=== PATIENT | female | born 1970 | race Caucasian/White ===

== ENCOUNTER → 2016-06-21 | Outpatient (CLI) | payer BC | LOC: M LAB 16:05 | PROVIDERS: ATTEND Nurse Practitioner Family | DX: E11.9 Type 2 diabetes mellitus without complications (principal) ==

== ENCOUNTER 2017-02-05 15:40 | Emergency (ER) | payer OTHER, BC ==
[~2017-02-05] VITALS: Ht 170.2 cm; Wt 99.1 kg
[2017-02-05] MEDS ORDERED: METF10004 PO (15:52)
[2017-02-05] MEDS ORDERED: PHEN-239 PO (15:52)
[2017-02-05] MEDS ORDERED: TANZ1INJ SC (15:52)
[2017-02-05 16:25] LABS: BASO % 0.5 % (0.0-1.0); EOS # 0.1 10^3/uL (0.0-0.50); EOS % 1.6 % (0.0-3.0); IMMATURE GRANULOCYTE % 0.4 % (0-0); LYMPH # 2.9 10^3/uL (1.5-4.5); LYMPH % 37.4 % (24.0-44.0); MEAN CORPUSCULAR HEMOGLOBIN 27.4 pg (27.0-33.0); MEAN CORPUSCULAR HGB CONC 32.9 g/dl (32.0-36.5); MEAN CORPUSCULAR VOLUME 83.3 fl (80.0-96.0); MONO # 0.5 10^3/uL (0.0-0.8); MONO % 6.7 % (0.0-5.0); NEUTROPHILS # 4.1 10^3/uL (1.8-7.7); NEUTROPHILS % 53.4 % (36.0-66.0); PLATELET COUNT, AUTOMATED 283 10^3/uL (150-450); RED CELL DISTRIBUTION WIDTH 13.3 % (11.5-14.5); WHITE BLOOD COUNT 7.6 10^3/uL (4.0-10.0)
[2017-02-05] MEDS ORDERED: ADACEL/BOOSTRIX VACCINE (DIPHTH/PERTUSS/ACELL/TETANUS)0.5ML SYR (90715) IM ONE (16:30)
[2017-02-05 16:53] LABS: ALBUMIN 3.8 GM/DL (3.2-5.2); ALBUMIN/GLOBULIN RATIO 1.03 (1.00-1.93); ALKALINE PHOSPHATASE 69 U/L (45-117); ALT/SGPT 43 U/L (12-78); ANION GAP 9 MEQ/L (8-16); AST/SGOT 20 U/L (7-37); BILIRUBIN,TOTAL 0.2 MG/DL (0.2-1.0); BLOOD UREA NITROGEN 12 MG/DL (7-18); CALCIUM LEVEL 9.4 MG/DL (8.5-10.1); CARBON DIOXIDE LEVEL 28 MEQ/L (21-32); CHLORIDE LEVEL 103 MEQ/L (98-107); CREATININE FOR GFR 0.91 MG/DL (0.55-1.02); GLOMERULAR FILTRATION RATE > 60.0 (>58); GLUCOSE, FASTING 140 MG/DL (70-105); POTASSIUM SERUM 3.8 MEQ/L (3.5-5.1); SODIUM LEVEL 140 MEQ/L (136-145); TOTAL PROTEIN 7.5 GM/DL (6.4-8.2)
[2017-02-05 17:07] VITALS: BP 138/76
[2017-02-05 17:55] LABS: HIV SCREEN CENTAUR EXPOSED NEGATIVE (NEGATIVE)
[2017-02-07 11:37] LABS: HEPATITIS B SURFACE ANTIBODY POSITIVE (POSITIVE)
== END 2017-02-05 17:08 | disposition home or self-care (01) ==
LOC: M ED 15:40
DX: S61.231A Puncture wound without foreign body of left index finger without damage to nail, initial encounter (principal); Z77.21 Contact with and (suspected) exposure to potentially hazardous body fluids; W46.1XXA Contact with contaminated hypodermic needle, initial encounter; Y92.238 Other place in hospital as the place of occurrence of the external cause; Y93.89 Activity, other specified; Y99.0 Civilian activity done for income or pay; Z79.84 Long term (current) use of oral hypoglycemic drugs; Z79.899 Other long term (current) drug therapy

== ENCOUNTER → 2017-06-14 | Outpatient (CLI) | payer BC | LOC: M RAD 08:57 | DX: R31.9 Hematuria, unspecified (principal) | CPT/HCPCS: 74176 ==

== ENCOUNTER → 2017-07-31 | Outpatient (CLI) | payer BC | LOC: M RAD 09:36 | DX: M53.3 Sacrococcygeal disorders, not elsewhere classified (principal) ==

== ENCOUNTER → 2017-11-21 | Outpatient (CLI) | payer BC ==
[2017-11-21 11:10] LABS: ESTIMATED AVERAGE GLUCOSE 157 MG/DL (60-110); HEMOGLOBIN A1c 7.1 %
[2017-11-21 11:25] LABS: ALBUMIN 3.8 GM/DL (3.2-5.2); ALKALINE PHOSPHATASE 70 U/L (45-117); ALT/SGPT 38 U/L (12-78); ANION GAP 6 MEQ/L (8-16); AST/SGOT 21 U/L (7-37); BILIRUBIN,TOTAL 0.3 MG/DL (0.2-1.0); BLOOD UREA NITROGEN 12 MG/DL (7-18); CALCIUM LEVEL 9.1 MG/DL (8.5-10.1); CARBON DIOXIDE LEVEL 30 MEQ/L (21-32); CHLORIDE LEVEL 104 MEQ/L (98-107); CHOLESTEROL LEVEL 158 MG/DL (<200); CHOLESTEROL RISK RATIO 2.548 (<5); CREATININE FOR GFR 0.69 MG/DL (0.55-1.30); GLOMERULAR FILTRATION RATE > 60.0 (>58); GLUCOSE, FASTING 130 MG/DL (70-100); HDL CHOLESTEROL 62 MG/DL (>40); LDL CHOLESTEROL 85 MG/DL (<100); NON-HDL-C 96 MG/DL; POTASSIUM SERUM 4.2 MEQ/L (3.5-5.1); SODIUM LEVEL 140 MEQ/L (136-145); TOTAL PROTEIN 7.6 GM/DL (6.4-8.2); TRIGLYCERIDES LEVEL 54 MG/DL (<150)
== END ==
LOC: M LAB 09:22
DX: E11.9 Type 2 diabetes mellitus without complications (principal); Z13.220 Encounter for screening for lipoid disorders; E66.09 Other obesity due to excess calories
CPT/HCPCS: 80053

== ENCOUNTER 2018-02-18 10:52 | Emergency (ER) | payer OTHER, BC ==
[2018-02-18 11:38] LABS: BASO # 0.1 10^3/uL (0.0-0.2); BASO % 0.6 % (0.0-1.0); EOS # 0.3 10^3/uL (0.0-0.50); EOS % 3.2 % (0.0-3.0); HEMATOCRIT 39.7 % (36.0-47.0); IMMATURE GRANULOCYTE % 0.4 % (0-3.0); LYMPH # 2.8 10^3/uL (1.5-4.5); LYMPH % 31.1 % (24.0-44.0); MEAN CORPUSCULAR HEMOGLOBIN 27.3 pg (27.0-33.0); MEAN CORPUSCULAR HGB CONC 32.7 g/dl (32.0-36.5); MEAN CORPUSCULAR VOLUME 83.2 fl (80.0-96.0); MONO # 0.5 10^3/uL (0.0-0.8); MONO % 5.9 % (0.0-5.0); NEUTROPHILS # 5.3 10^3/uL (1.8-7.7); NEUTROPHILS % 58.8 % (36.0-66.0); PLATELET COUNT, AUTOMATED 269 10^3/uL (150-450); RED BLOOD COUNT 4.77 10^6/uL (4.00-5.40); RED CELL DISTRIBUTION WIDTH 13.2 % (11.5-14.5)
[2018-02-18 11:59] LABS: ALBUMIN 3.5 GM/DL (3.2-5.2); ALBUMIN/GLOBULIN RATIO 0.97 (1.00-1.93); ALKALINE PHOSPHATASE 72 U/L (45-117); ALT/SGPT 44 U/L (12-78); ANION GAP 8 MEQ/L (8-16); AST/SGOT 33 U/L (7-37); BILIRUBIN,TOTAL 0.3 MG/DL (0.2-1.0); BLOOD UREA NITROGEN 12 MG/DL (7-18); CALCIUM LEVEL 8.6 MG/DL (8.5-10.1); CARBON DIOXIDE LEVEL 27 MEQ/L (21-32); CHLORIDE LEVEL 104 MEQ/L (98-107); GLOMERULAR FILTRATION RATE > 60.0 (>58); GLUCOSE, FASTING 150 MG/DL (70-100); POTASSIUM SERUM 4.1 MEQ/L (3.5-5.1); SODIUM LEVEL 139 MEQ/L (136-145); TOTAL PROTEIN 7.1 GM/DL (6.4-8.2)
[2018-02-18 12:03] LABS: CONTROL LINE HCG INT CTR LINE PRESENT; HCG, SERUM QUALITATIVE NEGATIVE (NEGATIVE)
[2018-02-18 12:37] LABS: HEPATITIS B SURFACE ANTIBODY POSITIVE (POSITIVE)
[2018-02-18 12:47] LABS: HIV SCREEN CENTAUR EXPOSED NEGATIVE (NEGATIVE)
[2018-02-18 12:48] LABS: HEPATITIS B SURFACE ANTIGEN NEGATIVE (NEGATIVE)
[2018-02-18 13:16] LABS: HEPATITIS C VIRUS ABY INDEX 0.1 INDEX (<0.8)
== END 2018-02-18 11:53 | disposition home or self-care (01) ==
LOC: M ED 10:52
DX: S61.230A Puncture wound without foreign body of right index finger without damage to nail, initial encounter (principal); W26.8XXA Contact with other sharp object(s), not elsewhere classified, initial encounter; Y92.234 Operating room of hospital as the place of occurrence of the external cause; Y99.0 Civilian activity done for income or pay; Z77.21 Contact with and (suspected) exposure to potentially hazardous body fluids; E11.9 Type 2 diabetes mellitus without complications; Z79.84 Long term (current) use of oral hypoglycemic drugs; Z91.040 Latex allergy status
CPT/HCPCS: 80053

== ENCOUNTER 2018-07-03 08:56 | Emergency (ER) | payer OTHER, BC ==
[~2018-07-03] VITALS: Ht 170.2 cm; Wt 103.1 kg
[2018-07-03 08:56] VITALS: BP 134/76
[~2018-07-03 08:56] MED LIST: METF10004 PO; PHEN-239 PO; TANZ1INJ SC
[2018-07-03] MEDS ORDERED: TRUL10IN (09:02)
[2018-07-03 09:38] LABS: BASO % 0.4 % (0.0-1.0); EOS # 0.2 10^3/uL (0.0-0.50); EOS % 2.7 % (0.0-3.0); HEMATOCRIT 40.1 % (36.0-47.0); HEMOGLOBIN 13.1 g/dl (12.0-15.5); LYMPH # 2.4 10^3/uL (1.5-4.5); LYMPH % 35.1 % (24.0-44.0); MEAN CORPUSCULAR HEMOGLOBIN 26.6 pg (27.0-33.0); MEAN CORPUSCULAR HGB CONC 32.7 g/dl (32.0-36.5); MEAN CORPUSCULAR VOLUME 81.3 fl (80.0-96.0); MONO # 0.3 10^3/uL (0.0-0.8); MONO % 4.9 % (0.0-5.0); NEUTROPHILS # 3.8 10^3/uL (1.8-7.7); NEUTROPHILS % 56.6 % (36.0-66.0); PLATELET COUNT, AUTOMATED 248 10^3/uL (150-450); RED BLOOD COUNT 4.93 10^6/uL (4.00-5.40); WHITE BLOOD COUNT 6.8 10^3/uL (4.0-10.0)
[2018-07-03 10:02] LABS: ALBUMIN 3.9 GM/DL (3.2-5.2); ALT/SGPT 68 U/L (12-78); BILIRUBIN,TOTAL 0.3 MG/DL (0.2-1.0); BLOOD UREA NITROGEN 13 MG/DL (7-18); CALCIUM LEVEL 9.2 MG/DL (8.5-10.1); CARBON DIOXIDE LEVEL 27 MEQ/L (21-32); CHLORIDE LEVEL 105 MEQ/L (98-107); CREATININE FOR GFR 0.76 MG/DL (0.55-1.30); GLOMERULAR FILTRATION RATE > 60.0 (>58); GLUCOSE, FASTING 246 MG/DL (70-100); POTASSIUM SERUM 4.1 MEQ/L (3.5-5.1); SODIUM LEVEL 138 MEQ/L (136-145); TOTAL PROTEIN 7.6 GM/DL (6.4-8.2)
[2018-07-03 10:14] LABS: HEPATITIS B SURFACE ANTIBODY POSITIVE (POSITIVE)
[2018-07-03 10:25] LABS: HEPATITIS B SURFACE ANTIGEN NEGATIVE (NEGATIVE)
== END 2018-07-03 09:46 | disposition home or self-care (01) ==
LOC: M ED 08:56
DX: S61.431A Puncture wound without foreign body of right hand, initial encounter (principal); W46.1XXA Contact with contaminated hypodermic needle, initial encounter; Y92.234 Operating room of hospital as the place of occurrence of the external cause; Y93.89 Activity, other specified; Y99.0 Civilian activity done for income or pay; Z77.21 Contact with and (suspected) exposure to potentially hazardous body fluids; Z79.84 Long term (current) use of oral hypoglycemic drugs; Z79.899 Other long term (current) drug therapy; Z91.040 Latex allergy status

== ENCOUNTER → 2019-02-10 | Outpatient (CLI) | payer BC ==
[~2019-02-10] MED LIST changes: +TRUL10IN
[2019-02-10 07:16] LABS: BASO % 0.4 % (0.0-1.0); EOS # 0.3 10^3/uL (0.0-0.5); EOS % 4.2 % (0.0-3.0); HEMATOCRIT 41.9 % (36.0-47.0); HEMOGLOBIN 13.6 g/dl (12.0-15.5); LYMPH # 2.8 10^3/uL (1.5-5.0); LYMPH % 38.3 % (24.0-44.0); MEAN CORPUSCULAR HEMOGLOBIN 27.1 pg (27.0-33.0); MEAN CORPUSCULAR HGB CONC 32.5 g/dl (32.0-36.5); MEAN CORPUSCULAR VOLUME 83.5 fl (80.0-96.0); MONO # 0.5 10^3/uL (0.0-0.8); MONO % 6.5 % (0.0-5.0); NEUTROPHILS # 3.6 10^3/uL (1.5-8.5); NEUTROPHILS % 50.3 % (36.0-66.0); PLATELET COUNT, AUTOMATED 230 10^3/uL (150-450); RED BLOOD COUNT 5.02 10^6/uL (4.00-5.40); WHITE BLOOD COUNT 7.2 10^3/uL (4.0-10.0)
[2019-02-10 07:44] LABS: ALBUMIN 3.6 GM/DL (3.2-5.2); ALT/SGPT 80 U/L (12-78); BILIRUBIN,TOTAL 0.5 MG/DL (0.2-1.0); BLOOD UREA NITROGEN 9 MG/DL (7-18); CALCIUM LEVEL 8.8 MG/DL (8.5-10.1); CARBON DIOXIDE LEVEL 27 MEQ/L (21-32); CHLORIDE LEVEL 104 MEQ/L (98-107); CREATININE FOR GFR 0.66 MG/DL (0.55-1.30); GLOMERULAR FILTRATION RATE > 60.0 (>51); GLUCOSE, FASTING 308 MG/DL (70-100); SODIUM LEVEL 139 MEQ/L (136-145); TOTAL PROTEIN 7.2 GM/DL (6.4-8.2)
== END ==
LOC: M LAB 06:30
PROVIDERS: ATTEND Surgery
DX: Z01.818 Encounter for other preprocedural examination (principal); E11.9 Type 2 diabetes mellitus without complications

== ENCOUNTER → 2019-02-13 | Outpatient (REF) | payer BC | LOC: M SFHCLERA 15:40 | PROVIDERS: ATTEND Family Medicine | DX: E11.9 Type 2 diabetes mellitus without complications (principal); Z53.9 Procedure and treatment not carried out, unspecified reason ==

== ENCOUNTER → 2019-02-14 | Outpatient (CLI) | payer BC ==
[2019-02-14 07:33] LABS: HEMOGLOBIN A1c 10.3 %
[2019-02-14 07:45] LABS: CHOLESTEROL RISK RATIO 3.479 (<5); THYROID STIMULATING HORMONE 2.73 uIU/ML (0.358-3.740)
[2019-02-14 11:32] LABS: MALB URINE SIEMENS 58.9 MG/L; MAU/CREAT RATIO 12.5 MCG/MG (0.0-30.0)
== END ==
LOC: M LAB 06:14
PROVIDERS: ATTEND Family Medicine
DX: E11.9 Type 2 diabetes mellitus without complications (principal)

== ENCOUNTER → 2019-04-04 | Outpatient (CLI) | payer BC ==
[2019-04-04 13:57] LABS: HEMATOCRIT 48.6 % (36.0-47.0)
[2019-04-04 14:02] LABS: BASO % 0.5 % (0.0-1.0); EOS # 0.2 10^3/uL (0.0-0.5); EOS % 4.1 % (0.0-3.0); HEMATOCRIT 48.4 % (36.0-47.0); HEMOGLOBIN 15.6 g/dl (12.0-15.5); LYMPH # 1.9 10^3/uL (1.5-5.0); MEAN CORPUSCULAR HGB CONC 32.2 g/dl (32.0-36.5); MEAN CORPUSCULAR VOLUME 83.7 fl (80.0-96.0); MONO # 0.5 10^3/uL (0.0-0.8); NEUTROPHILS # 3.1 10^3/uL (1.5-8.5); NEUTROPHILS % 54.2 % (36.0-66.0); PLATELET COUNT, AUTOMATED 184 10^3/uL (150-450); RED BLOOD COUNT 5.78 10^6/uL (4.00-5.40); WHITE BLOOD COUNT 5.6 10^3/uL (4.0-10.0)
[2019-04-04 14:33] LABS: ALT/SGPT 47 U/L (12-78); BILIRUBIN,TOTAL 0.8 MG/DL (0.2-1.0); BLOOD UREA NITROGEN 6 MG/DL (7-18); CALCIUM LEVEL 9.3 MG/DL (8.5-10.1); CARBON DIOXIDE LEVEL 30 MEQ/L (21-32); CHLORIDE LEVEL 100 MEQ/L (98-107); CREATININE FOR GFR 0.83 MG/DL (0.55-1.30); FERRITIN 265 NG/ML (8-252); GLOMERULAR FILTRATION RATE > 60.0 (>51); GLUCOSE, FASTING 160 MG/DL (70-100); HEMOGLOBIN A1c 8.8 %; IRON (FE) 76 UG/DL (50-170); PERCENT SATURATION 23.2 % (13.2-45.0); PHOSPHORUS LEVEL 3.1 MG/DL (2.5-4.9); POTASSIUM SERUM 3.5 MEQ/L (3.5-5.1); SODIUM LEVEL 141 MEQ/L (136-145); TOTAL IRON BINDING CAPACITY 328 UG/DL (250-450); TOTAL PROTEIN 7.6 GM/DL (6.4-8.2)
[2019-04-04 14:41] LABS: TOTAL 25(OH) VITAMIN D 35.8 NG/ML (30.0-100.0); VITAMIN B12 LEVEL > 2000 PG/ML (247-911)
== END ==
LOC: M LAB 13:09
PROVIDERS: ATTEND Surgery
DX: K91.2 Postsurgical malabsorption, not elsewhere classified (principal); E55.9 Vitamin D deficiency, unspecified; Z98.84 Bariatric surgery status

== ENCOUNTER → 2019-09-18 | Outpatient (CLI) | payer BC ==
[2019-09-18 06:49] LABS: BASO % 0.4 % (0.0-1.0); EOS # 0.2 10^3/uL (0.0-0.5); EOS % 2.3 % (0.0-3.0); HEMATOCRIT 41.2 % (36.0-47.0); HEMOGLOBIN 13.6 g/dl (12.0-15.5); LYMPH # 2.8 10^3/uL (1.5-5.0); LYMPH % 38.5 % (24.0-44.0); MEAN CORPUSCULAR HEMOGLOBIN 28.9 pg (27.0-33.0); MEAN CORPUSCULAR VOLUME 87.5 fl (80.0-96.0); MONO # 0.4 10^3/uL (0.0-0.8); MONO % 5.8 % (0.0-5.0); NEUTROPHILS # 3.8 10^3/uL (1.5-8.5); NEUTROPHILS % 52.7 % (36.0-66.0); PLATELET COUNT, AUTOMATED 222 10^3/uL (150-450); RED BLOOD COUNT 4.71 10^6/uL (4.00-5.40); WHITE BLOOD COUNT 7.3 10^3/uL (4.0-10.0)
[2019-09-18 07:08] LABS: HEMOGLOBIN A1c 6.4 %
[2019-09-18 07:18] LABS: ALBUMIN 3.7 GM/DL (3.2-5.2); ALT/SGPT 32 U/L (12-78); BILIRUBIN,TOTAL 0.4 MG/DL (0.2-1.0); BLOOD UREA NITROGEN 12 MG/DL (7-18); CALCIUM LEVEL 9.3 MG/DL (8.5-10.1); CARBON DIOXIDE LEVEL 31 MEQ/L (21-32); CHLORIDE LEVEL 104 MEQ/L (98-107); CREATININE FOR GFR 0.68 MG/DL (0.55-1.30); FERRITIN 127 NG/ML (8-252); GLOMERULAR FILTRATION RATE > 60.0 (>51); GLUCOSE, FASTING 103 MG/DL (70-100); IRON (FE) 71 UG/DL (50-170); MAGNESIUM LEVEL 2.1 MG/DL (1.8-2.4); PERCENT SATURATION 21.3 % (13.2-45.0); PHOSPHORUS LEVEL 4.4 MG/DL (2.5-4.9); POTASSIUM SERUM 3.9 MEQ/L (3.5-5.1); SODIUM LEVEL 140 MEQ/L (136-145); TOTAL IRON BINDING CAPACITY 333 UG/DL (250-450); TOTAL PROTEIN 7.1 GM/DL (6.4-8.2)
[2019-09-18 10:18] LABS: TOTAL 25(OH) VITAMIN D 58.5 NG/ML (30.0-100.0); VITAMIN B12 LEVEL 1901 PG/ML (247-911)
[2019-09-19 10:50] LABS: HEMATOCRIT 41.2 % (36.0-47.0)
== END ==
LOC: M LAB 06:15
PROVIDERS: ATTEND Physician Assistant
DX: K91.2 Postsurgical malabsorption, not elsewhere classified (principal); E55.9 Vitamin D deficiency, unspecified; Z98.84 Bariatric surgery status; Z86.39 Personal history of other endocrine, nutritional and metabolic disease

== ENCOUNTER → 2020-01-15 | Outpatient (CLI) | payer BC | LOC: M WHC 07:55 | PROVIDERS: ATTEND Family Medicine | DX: Z12.31 Encounter for screening mammogram for malignant neoplasm of breast (principal) ==

== ENCOUNTER → 2020-03-22 | Outpatient (REF) | payer SELFPAY | LOC: M LABSMTC 13:40 → EDSTATUS 13:50 | PROVIDERS: ATTEND Pediatrics | DX: Z20.822 Contact with and (suspected) exposure to COVID-19 (principal) ==

== ENCOUNTER → 2020-04-02 | Outpatient (CLI) | payer BC ==
[2020-04-02 07:08] LABS: BASO % 0.8 % (0.0-1.0); EOS # 0.2 10^3/uL (0.0-0.5); EOS % 3.4 % (0.0-3.0); HEMATOCRIT 40.3 % (36.0-47.0); HEMOGLOBIN 13.6 g/dl (12.0-15.5); LYMPH # 2.7 10^3/uL (1.5-5.0); LYMPH % 53.2 % (24.0-44.0); MEAN CORPUSCULAR HGB CONC 33.7 g/dl (32.0-36.5); MEAN CORPUSCULAR VOLUME 85.9 fl (80.0-96.0); MONO # 0.3 10^3/uL (0.0-0.8); MONO % 6.6 % (0.0-5.0); NEUTROPHILS # 1.8 10^3/uL (1.5-8.5); PLATELET COUNT, AUTOMATED 209 10^3/uL (150-450); RED BLOOD COUNT 4.69 10^6/uL (4.00-5.40)
[2020-04-02 07:14] LABS: HEMATOCRIT 40.3 % (36.0-47.0)
[2020-04-02 07:45] LABS: ALBUMIN 3.7 GM/DL (3.2-5.2); ALT/SGPT 39 U/L (12-78); BILIRUBIN,TOTAL 0.5 MG/DL (0.2-1.0); BLOOD UREA NITROGEN 16 MG/DL (7-18); CALCIUM LEVEL 8.9 MG/DL (8.5-10.1); CARBON DIOXIDE LEVEL 33 MEQ/L (21-32); CHLORIDE LEVEL 105 MEQ/L (98-107); CREATININE FOR GFR 0.59 MG/DL (0.55-1.30); FERRITIN 113 NG/ML (8-252); GLOMERULAR FILTRATION RATE > 60.0 (>51); GLUCOSE, FASTING 97 MG/DL (70-100); IRON (FE) 75 UG/DL (50-170); PHOSPHORUS LEVEL 4.1 MG/DL (2.5-4.9); POTASSIUM SERUM 3.8 MEQ/L (3.5-5.1); SODIUM LEVEL 141 MEQ/L (136-145); TOTAL IRON BINDING CAPACITY 341 UG/DL (250-450); TOTAL PROTEIN 6.8 GM/DL (6.4-8.2)
[2020-04-02 09:33] LABS: TOTAL 25(OH) VITAMIN D 41.8 NG/ML (30.0-100.0)
[2020-04-02 09:34] LABS: FOLATE 20.2 NG/ML (>5.4); VITAMIN B12 LEVEL 1608 PG/ML (247-911)
[2020-04-02 09:51] LABS: HEMOGLOBIN A1c 5.8 %
== END ==
LOC: M LAB 06:10
PROVIDERS: ATTEND Physician Assistant
DX: K91.2 Postsurgical malabsorption, not elsewhere classified (principal); Z98.84 Bariatric surgery status; E55.9 Vitamin D deficiency, unspecified; Z86.39 Personal history of other endocrine, nutritional and metabolic disease

== ENCOUNTER 2021-01-23 15:25 | Emergency (ER) | payer BC, SELFPAY ==
[~2021-01-23] VITALS: Ht 167.6 cm; Wt 71.3 kg
[2021-01-23] MEDS ORDERED: OMEP10CASR PO (15:32)
--- OUTSIDE RECORDS SUMMARY | 2021-01-23 15:33 | CCD ---
Author Author [facility] Organization [facility] Address Unknown Phone Unavailable Care Team Providers Care Inspector Glass Or Mirror Name Role Phone Tiarra Gardiner Unavailable PROBLEMS Type Condition ICD9-CM Code [id number] Code Onset Dates Condition S tatus W/U Status Risk SNOMED Code Notes Problem Type 2 diabetes mellitus without complications E11 .9 Active confirmed 159799411 Problem Obesity (BMI 35.0-39.9 without comorbidity) E66.9 Active confirmed 361348366 Problem Gastric bypass status for obesity Z98.84 Active confirmed 460684936 Problem Vaginal atrophy N95.2 Active confirmed 2971 84869 Problem Fatty liver disease, nonalcoholic K76.0 Active confirmed 562030038 Problem Vitamin D deficiency E55.9 Active confirmed 44179372 Problem Family history of cancer Z80.9 Active confirmed 090720972 Problem Washburn's esophagus without dysplasia K22.70 Ac tive confirmed 757616519 ALLERGIES Allergen (clinical drug ingredient) Drug/Non Drug Allergy do cumented on EMR Reaction Allergy Type Onset Date Status Latex (for allergy use only) Hives, itching Drug Allergy Active ENCOUNTERS from 1968 to 2020-12-21 Encounter Location Date Provider Diagnosis [facility] [address] [facility] [phone] [place] [address] 11 Dec, 2020 Tiarra Gardiner Washburn's esophagus without dysplasia K22.70 IMMUNIZATIONS Vaccine Route Administration Date Status Influenza 18 yrs & older Flublok Unknown Feb 03, 2019 Administered SOCIAL HISTORY Tobacco Use: Social History Observation Description Date Details (start date - stop date) Never Smoker Sex Assigned At : Social History Observation Description Sex Assigned At Unknown Education: Question Answer Notes Level of Education: Some college Audit Question Answer Notes Total Score: 1 Interpretation: Alcohol Education Language: Question Answer Notes Languages spoken: Korean Orthodoxy: Question Answer Notes Orthodoxy 03 Cheondoism Sexual Hx: Question Answer Notes Had sex in the last 12 months (vaginal, oral, or anal)? Yes Have you ever had an STD? No with Men only Use protection? No Drug and Alcohol Question Answer Notes Total Score: 0 Interpretation: No problems reported Alcohol Screening: Question Answer Notes Did you have a drink containing alcohol in the past year? No Points 0 Interpretation Negative Tobacco Use: Question Answer Notes Are you a: never smoker REASON FOR REFERRAL No Information VITAL SIGNS No information MEDICATIONS Medication SIG (Take, Route, Frequency, Duration) Notes Start Da te End Date Status Vitamin B Complex - as directed Orally Daily 1500 MG Active metFORMIN HCl ER 500 MG 1 tablet with evening meal Orally Once a day Apr, Not-Taking Ferrous Sulfate 325 (65 Fe) MG 1 tablet Orally Once a day somedays Not-Taking Multivitamin Adult _ 2 tablets Orally Once a day Active FreeStyle Michael 14 Day Sensor - USE DIRECTED for 28 Not-Taking Diflucan 150 MG 1 tablet Orally Daily for 2 days Can rep eat dose at 48 hours if no improvement Dec, Active Calcium Citrate + D _ 2 tablets Orally Twice a day 200 MG Active Omeprazole 20 MG 1 capsule 30 minutes before morning meal Orally Daily for 90 day(s) Active Premarin 0.625 MG/GM 0.5gm daily for 2 weeks, the n twice a week Vaginal for 90 day(s) Jan, Active PROCEDURES No Information RESULTS No Results REASON FOR VISIT REFILL MEDICAL (GENERAL) HISTORY Type Description Date Medical History Type 2 diabetes,stopped meds after by Medical History History of hematuria, attrib uted to renal stones and infections in the past. Medical History Obesity Medical History Fatty liver disease Medical History Barrets esophagus Surgical History Tonsillectomy and Adenoidectomy 1987 Surgical History Laparoscopy multiple Surgical History Cystoscopy 1987 Surgical History Total Hysterectomy, after an abnormal pap and s/p pap, endometriosis, did have pap after that which was normal 05/28/2002 Surgical History Cholecystectomy 2009 Surgical History Colonoscopy 2009 Surgical History EGD 01/2019 Surgical History Gastric Bypass 03/06/19 Hospitalization History surgery related Hospitalization History childbirth - NVD 1990 & 1993 Goals Section No Information Health Concerns No Information MEDICAL EQUIPMENT No Information MENTAL STATUS No Information FUNCTIONAL STATUS No Information ASSESSMENTS Encounter Date Diagnosis Assessment Notes Treatment Notes Treatm ent Clinical Notes Dec, Washburn's esophagus without dysplasia (ICD-10 - K22.70) PLAN OF TREATMENT Medication Medication Name Sig Start Date Stop Date Omeprazole 20 MG 1 capsule 30 minutes before morning meal Orally Daily for 90 day(s) Diflucan 150 MG 1 tablet Orally Daily for 2 days Dec, Insurance Providers Payer Name Payer Address Payer Phone Insured Name Patient Relati onship to Insured Coverage Start Date Coverage End Date BCBS [facility] [phone] [facility] [id number] [place]
--- OUTSIDE RECORDS SUMMARY | 2021-01-23 15:33 | CCD ---
Author Author [facility] Organization [facility] Address Unknown Phone Unavailable Care Team Providers Care Resource Paraprofessional Name Role Phone Tiarra Gardiner Unavailable PROBLEMS Type Condition ICD9-CM Code VDH80-[id number] Code Onset Dates Condition S tatus W/U Status Risk SNOMED Code Notes Problem Type 2 diabetes mellitus without complications E11 .9 Active confirmed 496684256 Problem Obesity (BMI 35.0-39.9 without comorbidity) E66.9 Active confirmed 831019111 Problem Gastric bypass status for obesity Z98.84 Active confirmed 548924288 Problem Vaginal atrophy N95.2 Active confirmed 2971 83317 Problem Fatty liver disease, nonalcoholic K76.0 Active confirmed 558503786 Problem Vitamin D deficiency E55.9 Active confirmed 77530394 Problem Family history of cancer Z80.9 Active confirmed 693515900 Problem Washburn's esophagus without dysplasia K22.70 Ac tive confirmed 646037078 ALLERGIES Allergen (clinical drug ingredient) Drug/Non Drug Allergy do cumented on EMR Reaction Allergy Type Onset Date Status Latex (for allergy use only) Hives, itching Drug Allergy Active ENCOUNTERS from 1970 to 2020-12-14 Encounter Location Date Provider Diagnosis [facility] [address] [facility] [phone] [place] [address] Dec, Tiarradagmar Gardiner Washburn's esophagus without dysplasia K22.70 IMMUNIZATIONS [...] Education Language: Question Answer Notes Languages spoken: Divehi Restorationism: Question Answer Notes Restorationism 03 Mormon Sexual Hx: Question Answer Notes Had sex [...] as directed Orally Daily 1500 MG Active Omeprazole 20 MG 1 capsule 30 minutes before morning meal Orally Daily for 90 day(s) Active Premarin 0.625 MG/GM 0.5gm daily for 2 weeks, the n twice a week Vaginal for 90 day(s) Jan, Active metFORMIN HCl ER 500 MG 1 tablet with evening meal Orally Once a day Apr, Not-Taking Multivitamin Adult _ 2 tablets Orally Once a day Active Calcium Citrate + D _ 2 tablets Orally Twice a day 200 MG Active Ferrous Sulfate 325 (65 Fe) MG 1 tablet Orally Once a day somedays Not-Taking FreeStyle Michael 14 Day Sensor - USE DIRECTED for 28 Not-Taking PROCEDURES No Information RESULTS No Results REASON FOR VISIT Refill MEDICAL (GENERAL) HISTORY Type Description Date Medical History Type 2 diabetes,stopped meds after bypas s Medical History History of hematuria, attrib uted [...] which was normal 05/28/2002 Surgical History Cholecystectomy 2008 Surgical History Colonoscopy 2009 Surgical History EGD [...] morning meal Orally Daily for 90 day(s) Insurance Providers Payer Name Payer Address Payer Phone Insured Name Patient Relati onship to Insured Coverage Start Date Coverage End Date [facility] [phone] [facility] [id number] [place]
--- OUTSIDE RECORDS SUMMARY | 2021-01-23 15:33 | CCD ---
Author Author [facility] Organization [facility] Address Unknown Phone Unavailable Care Team Providers Care Spindle Sander Name Role Phone Jarad Pastor Unavailable PROBLEMS Type Condition ICD9-CM Code [id number] Code Onset Dates Condition S tatus W/U Status Risk SNOMED Code Notes Problem Type 2 diabetes mellitus without complications E11 .9 Active confirmed 004931271 Problem Obesity (BMI 35.0-39.9 without comorbidity) E66.9 Active confirmed 834283876 Problem Gastric bypass status for obesity Z98.84 Active confirmed 351285493 Problem Vaginal atrophy N95.2 Active confirmed 2971 43486 Problem Fatty liver disease, nonalcoholic K76.0 Active confirmed 872904514 Problem Vitamin D deficiency E55.9 Active confirmed 51432424 Problem Family history of cancer Z80.9 Active confirmed 036874002 Problem Washburn's esophagus without dysplasia K22.70 Ac tive confirmed 380269713 ALLERGIES Allergen (clinical drug ingredient) Drug/Non Drug Allergy do cumented on EMR Reaction Allergy Type Onset Date Status Latex (for allergy use only) Hives, itching Drug Allergy Active ENCOUNTERS from 1968 to 2020-12-20 Encounter Location Date Provider Diagnosis [address] [phone] [place] [address] 11 Dec, 2020 Jarad Pastor IMMUNIZATIONS Vaccine Route Administration Date Status Influenza [...] Education Language: Question Answer Notes Languages spoken: American Judaism: Question Answer Notes Judaism 03 Jain Sexual Hx: Question Answer Notes Had sex [...] Information RESULTS No Results REASON FOR VISIT request Diflucan for yeast infection MEDICAL (GENERAL) HISTORY Type Description Date Medical History Type 2 diabetes,stopped meds after bypa s Medical History History of hematuria, attrib [...] No Information FUNCTIONAL STATUS No Information ASSESSMENTS No Information PLAN OF TREATMENT Medication Medication Name Sig Start Date Stop Date Omeprazole 20 MG 1 capsule 30 minutes before morning meal Orally Daily for 90 day(s) Diflucan 150 MG 1 tablet Orally Daily for 2 days Dec, Insurance Providers Payer Name Payer Address Payer Phone Insured Name Patient Relati onship to Insured Coverage Start Date [facility]age End Date [facility] [phone] [facility] [id number] [place]
--- OUTSIDE RECORDS SUMMARY | 2021-01-23 15:34 | CCD ---
Author Author [facility] Organization [facility] Address Unknown Phone Unavailable Care Team Providers Care Carroting Machine Offbearer Name Role Phone PATRICIA (KAILEY), Emily DE LA TORRE MD Unavailable Unavailab le PATRICIA (KAILEY), Emily DE LA TORRE MD Unavailable Unavailab le PATRICIA (KAILEY), Emily DE LA TORRE MD Unavailable Unavailab le PATRICIA (KAILEY), Emily DE LA TORRE MD Unavailable Unavailab le PATRICIA (KAILEY), Emily DE LA TORRE MD Unavailable Unavailab le PATRICIA (KAILEY), Emily DE LA TORRE MD Unavailable Unavailab le PATRICIA (KAILEY), Emily DE LA TORRE MD Unavailable Unavailab le PATRICIA (KAILEY), Emily DE LA TORRE MD Unavailable Unavailab le PATRICIA (KAILEY), Emily DE LA TORRE MD Unavailable Unavailab le PATRICIA (KAILEY), Emily DE LA TORRE MD Unavailable Unavailab le PATRICIA (KAILEY), Emily DE LA TORRE MD Unavailable Unavailab le PATRICIA (KAILEY), Emily DE LA TORRE MD Unavailable Unavailab le PATRICIA (KAILEY), Emily DE LA TORRE MD Unavailable Unavailab le PATRICIA (KAILEY), Emily DE LA TORRE MD Unavailable Unavailab le PATRICIA (KAILEY), Emily DE LA TORRE MD Unavailable Unavailab le PATRICIA (KAILEY), Emily DE LA TORRE MD Unavailable Unavailab le PATRICIA (KAILEY), Emily DE LA TORRE MD Unavailable Unavailab le PATRICIA (KAILEY), Emily DE LA TORRE MD Unavailable Unavailab le PATRICIA (KAILEY), Emily DE LA TORRE MD Unavailable Unavailab le PATRICIA (KAILEY), Emily DE LA TORRE MD Unavailable Unavailab le PATRICIA (KAILEY), Emily DE LA TORRE MD Unavailable Unavailab le PATRICIA (KAILEY), Emily DE LA TORRE MD Unavailable Unavailab le PATRICIA (KAILEY), Emily DE LA TORRE MD Unavailable Unavailab le PATRICIA (KAILEY), Emily DE LA TORRE MD Unavailable Unavailab le PATRICIA (KAILEY), Emily DE LA TORRE MD Unavailable Unavailab le PATRICIA (KAILEY), Emily DE LA TORRE MD Unavailable Unavailab le PATRICIA (KAILEY), Emily DE LA TORRE MD Unavailable Unavailab le PATRICIA (KAILEY), Emily DE LA TORRE MD Unavailable Unavailab le PATRICIA (KAILEY), Emily DE LA TORRE MD Unavailable Unavailab le PATRICIA (KAILEY), Emily DE LA TORRE MD Unavailable Unavailab le PATRICIA (KAILEY), Emily DE LA TORRE MD Unavailable Unavailab le PATRICIA (KAILEY), Emily DE LA TORRE MD Unavailable Unavailab le PATRICIA (KAILEY), Emily DE LA TORRE MD Unavailable Unavailab le PATRICIA (KAILEY), Emily DE LA TORRE MD Unavailable Unavailab le PATRICIA (KAILEY), Emily DE LA TORRE MD Unavailable Unavailab le PATRICIA (KAILEY), Emily DE LA TORRE MD Unavailable Unavailab le PATRICIA (KAILEY), Emily DE LA TORRE MD Unavailable Unavailab le PATRICIA (KAILEY), Emily DE LA TORRE MD Unavailable Unavailab le PATRICIA (KAILEY), Emily DE LA TORRE MD Unavailable Unavailab le PATRICIA (KAILEY), Emily DE LA TORRE MD Unavailable Unavailab le PATRICIA (KAILEY), Emily DE LA TORRE MD Unavailable Unavailab le PATRICIA (KAILEY), Emily DE LA TORRE MD Unavailable Unavailab le PATRICIA (KAILEY), Emily DE LA TORRE MD Unavailable Unavailab le PATRICIA (KAILEY), Emily DE LA TORRE MD Unavailable Unavailab le PATRICIA (KAILEY), Emily DE LA TORRE MD Unavailable Unavailab le PATRICIA (KAILEY), Emily DE LA TORRE MD Unavailable Unavailab le PATRICIA (KAILEY), Emily DE LA TORRE MD Unavailable Unavailab le PATRICIA (KAILEY), Emily DE LA TORRE MD Unavailable Unavailab le PATRICIA (KAILEY), Emily DE LA TORRE MD Unavailable Unavailab le PATRICIA (KAILEY), Emily DE LA TORRE MD Unavailable Unavailab le PATRICIA (KAILEY), Emily DE LA TORRE MD Unavailable Unavailab le PATRICIA (KAILEY), Emily DE LA TORRE MD Unavailable Unavailab le PATRICIA (KAILEY), Emily DE LA TORRE MD Unavailable Unavailab le PATRICIA (KIALEY), Emily DE LA TORRE MD Unavailable Unavailab le PATRICIA (KAILEY), Emily DE LA TORRE MD Unavailable Unavailab le PATRICIA (KAILEY), Emily DE LA TORRE MD Unavailable Unavailab le PATRICIA (KAILEY), Emily DE LA TORRE MD Unavailable Unavailab le PATRICIA (KAILEY), Emily DE LA TORRE MD Unavailable Unavailab le PATRICIA (KAILEY), Emily DE LA TORRE MD Unavailable Unavailab le PATRICIA (KAILEY), Emily DE LA TORRE MD Unavailable Unavailab le PATRICIA (KAILEY), Emily DE LA TORRE MD Unavailable Unavailab le PATRICIA (KAILEY), Emily DE LA TORRE MD Unavailable Unavailab le PATRICIA (KAILEY), Emily DE LA TORRE MD Unavailable Unavailab le PATRICIA (KAILEY), Emily DE LA TORRE MD Unavailable Unavailab le PATRICIA (KAILEY), Emily DE LA TORRE MD Unavailable Unavailab le PATRICIA (KAILEY), Emily DE LA TORRE MD Unavailable Unavailab le PATRICIA (KAILEY), Emily DE LA TORRE MD Unavailable Unavailab le PATRICIA (KAILEY), Emily DE LA TORRE MD Unavailable Unavailab le PATRICIA (KAILEY), Emily DE LA TORRE MD Unavailable Unavailab le PATRICIA (KAILEY), Emily DE LA TORRE MD Unavailable Unavailab le PATRICIA (KAILEY), Emily DE LA TORRE MD Unavailable Unavailab le PATRICIA (KAILEY), Emily DE LA TORRE MD Unavailable Unavailab le PATRICIA (KAILEY), Emily DE LA TORRE MD Unavailable Unavailab le PATRICIA (KAILEY), Emily DE LA TORRE MD Unavailable Unavailab le PATRICIA (KAILEY), Emily DE LA TORRE MD Unavailable Unavailab le PATRICIA (KAILEY), Emily DE LA TORRE MD Unavailable Unavailab le PATRICIA (KAILEY), Emily DE LA TORRE MD Unavailable Unavailab le PATRICIA (KAILEY), Emily DE LA TORRE MD Unavailable Unavailab le PATRICIA (KAILEY), Emily DE LA TORRE MD Unavailable Unavailab le PATRICIA (KAILEY), Emily DE LA TORRE MD Unavailable Unavailab le PATRICIA (KAILEY), Emily DE LA TORRE MD Unavailable Unavailab le PATRICIA (KAILEY), Emily DE LA TORRE MD Unavailable Unavailab le PATRICIA (KAILEY), Emily DE LA TORRE MD Unavailable Unavailab le PATRICIA (KAILEY), Emily DE LA TORRE MD Unavailable Unavailab le PATRICIA (KAILEY), Emily DE LA TORRE MD Unavailable Unavailab le PATRICIA (KAILEY), Emily DE LA TORRE MD Unavailable Unavailab le PATRICIA (KAILEY), Emily DE LA TORRE MD Unavailable Unavailab le RING, K KENJI PA Unavailable Unavailable RING, K KENJI PA Unavailable Unavailable RING, K KENJI PA Unavailable Unavailable RING, K KENJI PA Unavailable Unavailable RING, K KENJI PA Unavailable Unavailable RING, K KENJI PA Unavailable Unavailable RING, K KENJI PA Unavailable Unavailable RING, K KENJI PA Unavailable Unavailable RING, K KENJI PA Unavailable Unavailable RING, K KENJI PA Unavailable Unavailable RING, K KENJI PA Unavailable Unavailable RING, K KENJI PA Unavailable Unavailable RING, K KENJI PA Unavailable Unavailable RING, K KENJI PA Unavailable Unavailable RING, K KENJI PA Unavailable Unavailable RING, K KENJI PA Unavailable Unavailable RING, K KENJI PA Unavailable Unavailable RING, K KENJI PA Unavailable Unavailable RING, K KENJI PA Unavailable Unavailable RING, K KENJI PA Unavailable Unavailable RING, K KENJI PA Unavailable Unavailable Sayra, A Vernon GASTELUM Unavailable Unavailable Sayra, A Vernon GASTELUM Unavailable Unavailable Sayra, A Vernon GASTELUM Unavailable Unavailable Sayra, A Vernon GASTELUM Unavailable Unavailable Sayra, A Vernon GASTELUM Unavailable Unavailable Sayra, A Vernon GASTELUM Unavailable Unavailable Sayra, A Vernon GASTELUM Unavailable Unavailable Sayra, A Vernon GASTELUM Unavailable Unavailable Sayra, A Vernon GASTELUM Unavailable Unavailable Sayra, A Vernon GASTELUM Unavailable Unavailable Sayra, A Vernon GASTELUM Unavailable Unavailable Sayra, A Vernon GASTELUM Unavailable Unavailable Sayra, A Vernon GASTELUM Unavailable Unavailable Sayra, A Vernon GASTELUM Unavailable Unavailable Sayra, A Vernon GASTELUM Unavailable Unavailable Sayra, A Vernon GASTELUM Unavailable Unavailable Sayra, A Vernon GASTELUM Unavailable Unavailable Sayra, A Vernon GASTELUM Unavailable Unavailable Sayra, A Vernon GASTELUM Unavailable Unavailable Sayra, A Vernon GASTELUM Unavailable Unavailable Sayra, A Vernon GASTELUM Unavailable Unavailable Sayra, A Vernon GASTELUM Unavailable Unavailable Sayra, A Vernon GASTELUM Unavailable Unavailable Sayra, A Vernon GASTELUM Unavailable Unavailable Sayra, A Vernon GASTELUM Unavailable Unavailable Sayra, A Vernon GASTELUM Unavailable Unavailable Sayra, A Vernon GASTELUM Unavailable Unavailable Sayra, A Vernon GASTELUM Unavailable Unavailable Sayra, A Vernon GASTELUM Unavailable Unavailable Sayra, A Vernon GASTELUM Unavailable Unavailable Sayra, A Vernon GASTELUM Unavailable Unavailable Sayra, A Vernon GASTELUM Unavailable Unavailable Sayra, A Vernon GASTELUM Unavailable Unavailable Sayra, A Vernon GASTELUM Unavailable Unavailable Sayra, A Vernon GASTELUM Unavailable Unavailable Sayra, A Vernon GASTELUM Unavailable Unavailable Sayra, A Vernon GASTELUM Unavailable Unavailable Sayra, A Vernon GASTELUM Unavailable Unavailable Sayra, A Vernon GASTELUM Unavailable Unavailable Sayra, A Vernon GASTELUM Unavailable Unavailable Sayra, A Vernon GASTELUM Unavailable Unavailable Sayra, A Vernon GASTELUM Unavailable Unavailable Sayra, A Vernon GASTELUM Unavailable Unavailable Sayra, A Vernon GASTELUM Unavailable Unavailable Sayra, A Vernon GASTELUM Unavailable Unavailable Sayra, A Vernon GASTELUM Unavailable Unavailable Sayra, A Vernon GASTELUM Unavailable Unavailable Sayra, A Vernon GASTELUM Unavailable Unavailable Sayra, A Vernon GASTELUM Unavailable Unavailable Sayra, Adolfo Junior MD Unavailable Unavailable Sayra, Adolfo Junior MD Unavailable Unavailable Sayra, Adolfo Junior MD Unavailable Unavailable Sayra, A Vernon GASTELUM Unavailable Unavailable Sayra, A Vernon GASTELUM Unavailable Unavailable Sayra, A Vernon GASTELUM Unavailable Unavailable Sayra, A Vernon GASTELUM Unavailable Unavailable Sayra, A Vernon GASTELUM Unavailable Unavailable Sayra, A Vernon GASTELUM Unavailable Unavailable Sayra, A Vernon GASTELUM Unavailable Unavailable Sayra, A Vernon GASTELUM Unavailable Unavailable Sayra, A Vernon GASTELUM Unavailable Unavailable Sayra, A Vernon GASTELUM Unavailable Unavailable Sayra, A Vernon GASTELUM Unavailable Unavailable Sayra, A Vernon GASTELUM Unavailable Unavailable Sayra, A Vernon GASTELUM Unavailable Unavailable Sayra, A Vernon GASTELUM Unavailable Unavailable Sayra, A Vernon GASTELUM Unavailable Unavailable Sayra, A Vernon GASTELUM Unavailable Unavailable Sayra, A Vernon GASTELUM Unavailable Unavailable Sayra, A Vernon GASTELUM Unavailable Unavailable Sayra, A Vernon GASTELUM Unavailable Unavailable Sayra, A Vernon GASTELUM Unavailable Unavailable Sayra, A Vernon GASTELUM Unavailable Unavailable Sayra, Adolfo Junior MD Unavailable Unavailable Sayra, Adolfo Junior MD Unavailable Unavailable Sayra, Adolfo Junior MD Unavailable Unavailable Sayra, A Vernon GASTELUM Unavailable Unavailable Sayra, A Vernon GASTELUM Unavailable Unavailable Sayra, A Vernon GASTELUM Unavailable Unavailable Sayra, Adolfo Junior MD Unavailable Unavailable Sayra, Adolfo Junior MD Unavailable Unavailable Sayra, Adolfo Junior MD Unavailable Unavailable Sayra, Adolfo Junior MD Unavailable Unavailable Sayra, Adolfo Junior MD Unavailable Unavailable Sayra, Adolfo Junior MD Unavailable Unavailable Sayra, Adolfo Junior MD Unavailable Unavailable Sayra, Adolfo Junior MD Unavailable Unavailable Sayra, Adolfo Junior MD Unavailable Unavailable Sayra, Adolfo Junior MD Unavailable Unavailable Sayra, Adolfo Junior MD Unavailable Unavailable Sayra, Adolfo Junior MD Unavailable Unavailable Sayra, Adolfo Junior MD Unavailable Unavailable Sayra, Adolfo Junior MD Unavailable Unavailable Sayra, Adolfo Junior MD Unavailable Unavailable Sayra, Adolfo Junior MD Unavailable Unavailable Sayra, Adolfo Junior MD Unavailable Unavailable Sayra, Adolfo Junior MD Unavailable Unavailable Sayra, Adolfo Junior MD Unavailable Unavailable Sayra, Adolfo Junior MD Unavailable Unavailable Sayra, Adolfo Junior MD Unavailable Unavailable Sayra, Adolfo Junior MD Unavailable Unavailable Sayra, Adolfo Junior MD Unavailable Unavailable Sayra, Adolfo Junior MD Unavailable Unavailable Sayra, Adolfo Junior MD Unavailable Unavailable Sayra, Adolfo Junior MD Unavailable Unavailable Sayra, Adolfo Junior MD Unavailable Unavailable Sayra, Adolfo Junior MD Unavailable Unavailable Re-disclosure Warning The records that you are about to access may contain information from federally-assisted alcohol or drug abuse programs. If such information is present, then the following federally mandated warning applies: This information has been disclosed to you from records protected by federal confidentiality rules (42 CFR part 2). The federal rules prohibit you from making any further disclosure of this information unless further disclosure is expressly permitted by the written consent of the person to whom it pertains or as otherwise permitted by 42 CFR part 2. A general authorization for the release of medical or other information is NOT sufficient for this purpose. The Federal rules restrict any use of the information to criminally investigate or prosecute any alcohol or drug abuse patient.The records that you are about to access may contain highly sensitive health information, the redisclosure of which is protected by Article 27-F of the [facility] Public Health law. If you continue you may have access to information: Regarding HIV / AIDS; Provided by facilities licensed or operated by the [facility] Office of Mental Health; or Provided by the [facility] Office for People With Developmental Disabilities. If such information is present, then the following [facility] mandated warning applies: This information has been disclosed to you from confidential records which are protected by state law. State law prohibits you from making any further disclosure of this information without the specific written consent of the person to whom it pertains, or as otherwise permitted by law. Any unauthorized further disclosure in violation of state law may result in a fine or mcfp sentence or both. A general authorization for the release of medical or other information is NOT sufficient authorization for further disc losure. Encounters Encounter Providers Location Date Indications Data Source(s ) Unknown [address] [facility] [place] [address] 12/20/2020 12:00:00 AM EDT eCW1 ([facility]) Unknown [address] [facility] [address] 12/20/2020 12:00:00 AM EDT eCW1 ([facility]) Unknown [address] [facility] [address] 12/13/2020 12:00:00 AM EDT eCW1 ([facility]) Attender: WIL GOMEZ ([place]) MDReferrer: Kenia Colbert MD 06/29/2020 08:21:04 PM EDT [facility] Attender: WIL BENTON) MDReferrer: Kenia Colbert MD 06/29/2020 08:21:04 PM EDT [facility] Outpatient [address] [facility] [address] 05/28/2020 12:00:00 AM EDT eCW1 ([facility]) Outpatient [address] [facility] [address] 01/27/2020 12:00:00 AM EST eCW1 ([facility]) Unknown [address] [facility] [address] 01/19/2020 12:00:00 AM EST eCW1 ([facility]) Outpatient Attender: KENJI Amato [facility] 12/22/2019 12:45:00 PM EDT MEDENT ([facility]) Immunizations Vaccine Date Status Description Data Source(s) COVID-19 VACCINE O'ol Blue 03/25/2020 12:00:00 AM EST completed [facility] Vaccine Series Complete: YESThis Data wa s Submitted to [facility] Via StatSheet. COVID-19 VACCINE Pfizer 03/03/2020 12:00:00 AM EST completed [facility] Vaccine Series Complete: NOThis Data was Submitted to [facility] Via StatSheet. Medications Medication Brand Name Start Date Product Form Dose Route Admi nistrative Instructions Pharmacy Instructions Status Indications Reaction Description Data Source(s) 150 mg 12/20/2020 12:00:00 AM EDT tablet 2 TAKE 1 TABLET BY MOUTH ONCE MAY REPEAT IN 48 HOURS IF NO IMPROVEMENT TAKE 1 TABLET BY MOUTH ONCE MAY REPEAT I N 48 HOURS IF NO IMPROVEMENT SOLD: 12/20/2020 [facility] Fluconazole 150 MG Oral Tablet [Diflucan] Diflucan 150 MG Di flucan 150 MG 12/20/2020 12:00:00 AM EDT 1.0 {tablet} active Diflucan 150 MG eCW1 ([facility]) Fluconazole 150 MG Oral Tablet [Diflucan] Diflucan 150 MG Di flucan 150 MG 12/20/2020 12:00:00 AM EDT 1.0 {tablet} active Diflucan 150 MG eCW1 ([facility]) 20 mg 12/15/2020 12:00:00 AM EDT capsule,delayed release (DR/EC) 90 TAKE ONE CAPSULE BY MOUTH 30 MINUTES BEFORE MORNING MEAL TAKE ONE CAPSULE BY MOUTH 30 MINUTES BEFORE MORNING MEAL SOLD: 12/20/2020 [email or web address] Estrogens, Conjugated (HALFWAY) 0.625 MG/ML Vaginal Cream [Premarin] Premarin 0.625 MG/GM Premarin 0.625 MG/GM 01/27/2020 12:00:00 AM EST active Premarin 0.625 MG/GM eCW1 ([facility]) 0.625 mg/gram 01/27/2020 12:00:00 AM EST cream 30 INSERT 0.5GM VAGINALLY ONCE DAILY FOR 2 WEEKS THEN REDUCE TO TWICE WEEKLY INSERT 0.5GM VAGINALLY ONCE DAILY FOR 2 WEEKS THEN REDUCE TO TWICE WEEKLY SOLD: 01/06/2021 [facility] 0.625 mg/gram 01/27/2020 12:00:00 AM EST cream 30 INSERT 0.5GM VAGINALLY ONCE DAILY FOR 2 WEEKS THEN REDUCE TO TWICE WEEKLY INSERT 0.5GM VAGINALLY ONCE DAILY FOR 2 WEEKS THEN REDUCE TO TWICE WEEKLY SOLD: 06/08/2020 [facility] Estrogens, Conjugated (HALFWAY) 0.625 MG/ML Vaginal Cream [Premarin] Premarin 0.625 MG/GM Premarin 0.625 MG/GM 01/27/2020 12:00:00 AM EST active Premarin 0.625 MG/GM eCW1 ([facility]) Estrogens, Conjugated (HALFWAY) 0.625 MG/ML Vaginal Cream [Premarin] Premarin 0.625 MG/GM Premarin 0.625 MG/GM 01/27/2020 12:00:00 AM EST active Premarin 0.625 MG/GM eCW1 ([facility]) 0.625 mg/gram 01/27/2020 12:00:00 AM EST cream 30 INSERT 0.5GM VAGINALLY ONCE DAILY FOR 2 WEEKS THEN REDUCE TO TWICE WEEKLY INSERT 0.5GM VAGINALLY ONCE DAILY FOR 2 WEEKS THEN REDUCE TO TWICE WEEKLY SOLD: 01/27/2020 [facility] Estrogens, Conjugated (HALFWAY) 0.625 MG/ML Vaginal Cream [Premarin] Premarin 0.625 MG/GM Premarin 0.625 MG/GM 01/27/2020 12:00:00 AM EST active Premarin 0.625 MG/GM eCW1 ([facility]) Estrogens, Conjugated (HALFWAY) 0.625 MG/ML Vaginal Cream [Premarin] Premarin 0.625 MG/GM Premarin 0.625 MG/GM 01/27/2020 12:00:00 AM EST active Premarin 0.625 MG/GM eCW1 ([facility]) 20 mg 12/04/2019 12:00:00 AM EDT capsule,delayed release (DR/EC) 90 TAKE 1 CAPSULE BY MOUTH 30 MINUTES BEFORE MORNING MEAL TAKE 1 CAPSULE BY MOUTH 30 MINUTES BEFORE MORNING MEAL SOLD: 03/04/2020 [facility] 20 mg 12/04/2019 12:00:00 AM EDT capsule,delayed release (DR/EC) 90 TAKE 1 CAPSULE BY MOUTH 30 MINUTES BEFORE MORNING MEAL TAKE 1 CAPSULE BY MOUTH 30 MINUTES BEFORE MORNING MEAL SOLD: 06/08/2020 [facility] 20 mg 12/04/2019 12:00:00 AM EDT capsule,delayed release (DR/EC) 90 TAKE 1 CAPSULE BY MOUTH 30 MINUTES BEFORE MORNING MEAL TAKE 1 CAPSULE BY MOUTH 30 MINUTES BEFORE MORNING MEAL SOLD: 12/04/2019 [facility] 20 mg 12/04/2019 12:00:00 AM EDT capsule,delayed release (DR/EC) 90 TAKE 1 CAPSULE BY MOUTH 30 MINUTES BEFORE MORNING MEAL TAKE 1 CAPSULE BY MOUTH 30 MINUTES BEFORE MORNING MEAL SOLD: 09/15/2020 [facility] flintstones complete (FLINTSTONES) chewable tablet [id number] 03/06/2019 12:00:00 AM EST 2 {tbl} oral active Chew 2 tablets 1 (one) time each day. [facility] Vitamin B 12 1 MG Oral Tablet cyanocobalamin (VITAMIN B-12) 1,000 mcg tablet cyanocobalamin (VITAMIN B-12) 1,000 mcg tablet 03/06/2019 12:00:00 AM EST 1000 ug oral active Take 1 tab let (1,000 mcg total) by mouth 1 (one) time each day. [facility] Insurance Providers Payer name Policy type / Coverage type Policy ID Covered alliance party ID Covered alliance party's relationship to olvera Policy [place] Plan Information [place] 305/805 [id number] PROCLAIM [facility] [id number] SP [id number] [place] 306/806 [id number] SP [id number] [place] 302/307 [id number] SP [id number] [place] 302/307 [id number] SP [id number] PMA MANAGEMENT [facility] [id number] SP [id number] [place] 306/806 [id number] SP [id number] [employer] [place] [employer] P[place] POS [id number] [place] [id number] Self [id number] [place] xxxxxxxxxxxx SELF PAY ONLY EXCELLUS BCBS P [id number] S VYA [place] 302/307 [id number] SP [id number] [place] 302/307 [id number] SP [id number] PMA MANAGEMENT [facility] [id number] SP [id number] [employer] [facility] EMPL[employer]EE [id number] SP [id number] [place] 305/805 [id number] [place] 306/806 [id number] SP [id number] [place] 306/806 [id number] SP [id number] [place] P[place] 302/307 [id number] SP [id number] [place] 302/307 [id number] SP [id number] ANSI-Commercial [id number] PMA MANAGEMENT [facility] [id number] SP [id number] [place] 302/307 [id number] SP [id number] [place] 306/806 [id number] SP [id number] [facility] S UNAVAILABLE [id number] C UNAVAILABLE BCBS HMO [place] [id number] S [id number] Problems, Conditions, and Diagnoses Code Display Name Description Problem Type Effective Dates Data Source(s) N95.2 [id number] Vaginal atrophy Problem 01/27/2020 12:00:00 AM EST eCW1 ([facility]) Surgeries/Procedures No Information Results ID Date Data Source [id number] 06/29/2020 09:30:00 AM EDT [facility] Name Value Range Interpretation Code Description Data Miranda rce(s) Supporting Document(s) Follow Up [facility] TRBGLo2zFlJUNmSdKTNtLzzIUKscIYsaIPQeJ1G5SYhaBd2NEMiznmRpDLMrJf6+WWSiBH2prg7qSDLw gMy [file] Juan Manuel+0C42oO9xKLmYlagAZprqwSd3atwF97daQ/hblG49zJPk+3+VrawYR3q2XwcqCZIreNp7G1+tqmsY [file] uGm8b0LrhHIi52iavu5L+pkH9REpw8S40wbSU/DYN5NfE1p2E1YhvxZZ50G/sW8TjSPBPYgPnUeX+Securities Supervisor [file] iNhk6+5VufCyfVNOss0cMHzf4nkE10O6tpRNjlZwr/UlqE8fNXY0cJBaByQ+7koaEtEFe3RFnjsY/building performance specialist [file] m1dg/+It Application Support Analyst+RcNwWVLazNCmB2NOWpd5RvjePYPEF3NG2 [file] yu84BdXnyicOegVuRH/b/MINING SUPPORT WORKER/2LI6ffsGXJbZK8u8DIt0V1IXTLkSnkUqVhhYxvbxYoEwNDbSjrf050og [file] Wc2KQCC+EeK8LlPyRrFMiyP31MuLZo+junk removal specialist/N+VWdR+qPe5JcdQVR6niu3HhrxbVCGUPwhjpkaZrSEH+D [file] 2sH27kO2p2WL46MsWsijQT72E5X+LutRKPFUrQ++Peña [file] lWNsqRuX+peña+gnIk3rdYSJRplRnfu+q5baivtAG/m/5PqPqjgWYFNRUWooMFA38g3y/lN+IfQ1b18Qgm [file] fRDbdmhTmD6LMd2qh5g/aircraft navigator/oNXwQPLOGBU+Dzltr2 [file] ASSOCIATE PROFESSOR OF LITERATURE/HledGUF7ABTvpuFsk5wDEBBRA/7M+gIXHdT5QtbDF36FSS+l5RjG2mC0IBxT6uecAfZX8zL23znw [file] tony+FnkVHPoQOrgcWGbXhdT6PArqO7RRQefp6pFMGGjf+Y2V1EeJkeskynZr58gMQZu5chqpB5ZB32wC 9p6CERIM/1+jCv+bQnxrF3BTlABwlnbwvZaRr5S6pDiCNolisZF9cXHkqoaMGwh4BVJm7IGrjUkVItkO zj5nTwkcx9YU0gp5jMgmgSxrJ7MP8GVmD937j6U+ah EnKdwMvXOJRvVbD/28w3KoY9z2OCJZCpRBYMTaLHMedc//dks//ApK1zZGnjttooTIOzc31KVIiB9/dO yx8U2w+UL9+dcBxKBOhjNplaEmBxa47u5toMEaRwFMerYfl2Ilvs1Rz0DOt0NvR+iWERZIhD1/GjUR3I E49un+5HeCzGQ6hOnK7L2YNEs9M2bH9ZZ+80ozT5Fo bCBNoFybQj1lxXSsGuUOimItkcn0U7r7B4bTpzGE8hqb5I7abYbaj7ffVeTupdIaqm31XyOXMIvFU98u I8w+5TsYnJTNxeUasecKGuwu8FWjiPBLVleldl2HXNn/EFayH/5exSRExtDAuA8x8hWgvwx9qo9Sj8Wx HE859j959ldW+Eh4YkBBhtwLOFzOnjcv26Ag/Au542 81nVtL5pS6sehqvssS+HnCXtfm/dOCoW+PEÑA/iCyZzlueYZdcsfcjcstrZNFx5tGtWCm/icFr6RF3D7+4 [file] WdHp9yJvXcGnFABwAkWYNlb985V+peña+V2k9JBetJVA7HKVi0G2tAXDq7+Pu+TqUN8rZH1oYQYjvTzIG+ [file] Application Support Analyst [file] QuEaZ6l3Fz8BvFpiWKQLjF7FRPbb8GyFSJ4nQnD/solid waste technician [file] h3hQdftCqd3QBN/12r0ZLXo9glTyhF077eHDbxZI9K1jbWsQF/fuZ00yg1yx9N+mDBhXsIRoQDawF/solid waste technician [file] TezI7bj8v9DlL0CRHIqCM7nNyLcflQ9zuIAHBr8nOYv9vl2uebRfzxfJoQ/Juan+iiTaenWkq5FDXx03o h9IUcCJ4TiqOaMLiHbj89Wdjj39LR599OYnEwR877G 4cJEzGW45ahEInhkN0djlInHTWgaQjU8IvMk/rbsJBlpMqQPKj3dhiGYvDEu4UyZ67qTZpnOro1Kw1qY VmM4USoftRcnbWfJ3XrBxBX8grcFvfNJNwyFzxW3tRGepqdVGXaKquo0kLPkivqnvrziGQrMv7mTaOse RmOcQSrRqs7fIJIELgN28RLFh579m/G/ZtWgjaZ3H+ IZZE8/tgsge2CH/MGzNvMQgN878OLqzQ2OIjWZKYPxSa8GR+j8CMg5H9p0+KjDaWnGBF4dfbwVyzppv4 XU0hz/ZjrNcVYTjcFK1unJbmkCIzlX9YXyhHuKPB+q2oB1o0p1Pw44O6G+zaNkC0pX8VeA3VEArxPlwP X+ApXxvpVNeWXlhd7zcakT0zJRtN03Nc8fl546 K4kva+Lp9laYfAJ0dqSU8NlPWR1oZ5fv/N8kQ6ptgW2w1AyBgMvKeAZv9sRM+sJq3OlejsP/LPfoUnQt 9C3IB5aXihOcIo4drCQ7z/2fMFjGWg6QxKB4oxGR0DmqUuGV8RGBlh1/48z21UVf80OH41xItC5q3oRm lTzUOhtEfuUudtd7zWG7op6allrZLqKlzAPM3c/hjO laJhC5vZNyj7vFgU35aHyo6wJ5rn5K1SMn8j7n8gS8QNGbf482DwpKkWl36ldOcv/NOwm+n+ZrjiuI3P /TPP4Aa/sS+zktNepanyLtU+Lqj/dWFAFW61x7z/oSjeCAj9EkfPyHn3oeNtyTfdX4Ah0xcGJbX5tw49 JYc1hwgfq2RQw9Yc9yKKJkItL+2YEshhI0bXZXZ60M IPeZqmmgrylh03/aXX0IFI8FLUyxHPxUTUugZoxmaEiHfQoofIxGDkV5X61S+yYguio5k1rVvigYsZMc QQNiYQtnNOpoMhB/KfjYMcOzwK1A+mUn1he6Ri5mpWMwGcOuMXwWktJdG8vDuZWZQd3m5s0SkvgE0hpe iP+oY5k7K5tyzSDac5wJrUP1N57LwdxqIr9imVU6 [file] Luz Marina+++Spnh5zvOO/iz+nUm0PQmM2qJvp189N+q8XyA [file] HG3JTuoTTjUuRKM9zpNcrS0JBP1gz9UpBL9Tp5GmhmR3oyRaHBxpDTg2XaN2IYwkFOEYRa== ID Date Data Source [id number] 03/22/2020 12:30:00 PM EST [facility] Name Value Range Interpretation Code Description Data Miranda rce(s) Supporting Document(s) SARS coronavirus 2 RNA Not Detected [facility] This lab was ordered by [facility] and reported by [facility]. Procedure Social History Code Duration Value Status Description Data Source(s ) Smoking 05/28/2020 12:00:00 AM EDT Never Smoker completed Never S moker eCW1 ([facility]) Smoking 05/28/2020 12:00:00 AM EDT Never Smoker completed Never S moker eCW1 ([facility]) Smoking 05/28/2020 12:00:00 AM EDT Never Smoker completed Never S moker eCW1 ([facility]) Smoking 05/28/2020 12:00:00 AM EDT Never Smoker completed Never S moker eCW1 ([facility]) Smoking 01/27/2020 12:00:00 AM EST Never Smoker completed Never S moker eCW1 ([facility]) Smoking 12/22/2019 12:00:00 AM EDT Patient has never smoked co mpleted Patient has never smoked MEDENT ([facility], [facility]) Vital Signs ID Date Data Source UNK Name Value Range Interpretation Code Description Data Source(s) Body weight 147.6 [lb_av] 147.6 [lb_av] eCW1 ([facility]) Body height 67 [in_i] 67 [in_i] eCW1 ([facility]) Body mass index (BMI) [Ratio] 23.11 kg/m2 23.11 kg/m2 eCW1 ([facility]) Systolic blood pressure 116 mm[Hg] 116 mm[Hg] e CW1 ([facility]) Diastolic blood pressure 64 mm[Hg] 64 mm[Hg] eCW1 ([facility]) Body weight 143.6 [lb_av] 143.6 [lb_av] eCW1 ([facility]) Body height 67 [in_i] 67 [in_i] eCW1 ([facility]) Body mass index (BMI) [Ratio] 22.49 kg/m2 22.49 kg/m2 eCW1 ([facility]) Heart rate 60 /min 60 /min eCW1 ([facility]) Respiratory rate 17 /min 17 /min eCW1 ([facility]) Body temperature 98.5 [degF] 98.5 [degF] eCW1 ( [facility]) Systolic blood pressure 120 mm[Hg] 120 mm[Hg] e CW1 ([facility]) Diastolic blood pressure 64 mm[Hg] 64 mm[Hg] eCW1 ([facility]) Systolic blood pressure 128 mm[Hg] 128 mm[Hg] M EDENT ([facility]) Diastolic blood pressure 82 mm[Hg] 82 mm[Hg] MEDENT ([facility]) Heart rate 59 /min 59 /min MEDENT ([facility], [facility]) Respiratory rate 12 /min 12 /min MEDENT ( [facility]) Oxygen saturation in Arterial blood by Pulse oximetry 97 % 97 % MEDENT ([facility]) Body temperature 98.2 [degF] 98.2 [degF] MEDENT ([facility]) Body weight 145.00 [lb_av] 145.00 [lb_av] MEDEN T ([facility], [facility]) Body height 67 [in_i] 67 [in_i] MEDENT ([facility], [facility]) 5'7" Body mass index (BMI) [Ratio] 22.7 kg/m2 22.7 k g/m2 MEDENT ([facility]) Patient Treatment Plan of Care Planned Activity Planned Date Details Description Data Source (s) Fluconazole 150 MG Oral Tablet [Diflucan] 12/20/2020 12:00:00 AM ED T eCW1 ([facility]) Fluconazole 150 MG Oral Tablet [Diflucan] 12/20/2020 12:00:00 AM ED T eCW1 ([facility]) Estrogens, Conjugated (HALFWAY) 0.625 MG/ML Vaginal Cream [Premarin] 01/27/2020 12:00:00 AM EST eCW1 ([facility]) flintstones complete (FLINTSTONES) chewable tablet 03/06/2019 12 :00:00 AM [facility] Vitamin B 12 1 MG Oral Tablet 03/06/2019 12:00:00 AM [facility]
[2021-01-23] MEDS ORDERED: ONDANSETRON 4MG/2ML VIAL IV ONE (16:00)
[2021-01-23] MEDS ORDERED: KETOROLAC 30 MG/ML 1ML VIAL IV ONE (16:00)
[2021-01-23] MEDS ORDERED: NS 1,000 ML IV ONE (16:00)
[2021-01-23 16:13] LABS: BASO % 0.7 % (0.0-1.0); EOS # 0.1 10^3/uL (0.0-0.5); EOS % 2.6 % (0.0-3.0); HEMATOCRIT 42.2 % (36.0-47.0); HEMOGLOBIN 13.9 g/dl (12.0-15.5); LYMPH # 2.7 10^3/uL (1.5-5.0); LYMPH % 48.4 % (24.0-44.0); MEAN CORPUSCULAR HEMOGLOBIN 28.7 pg (27.0-33.0); MEAN CORPUSCULAR HGB CONC 32.9 g/dl (32.0-36.5); MEAN CORPUSCULAR VOLUME 87.2 fl (80.0-96.0); MONO # 0.4 10^3/uL (0.0-0.8); MONO % 6.6 % (2.0-8.0); NEUTROPHILS # 2.3 10^3/uL (1.5-8.5); NEUTROPHILS % 41.5 % (36.0-66.0); PLATELET COUNT, AUTOMATED 219 10^3/uL (150-450); RED BLOOD COUNT 4.84 10^6/uL (4.00-5.40); WHITE BLOOD COUNT 5.5 10^3/uL (4.0-10.0)
--- OUTSIDE RECORDS SUMMARY | 2021-01-23 16:25 | CCD ---
Author Author [facility] Organization [facility] Address Unknown Phone Unavailable Care Team Providers Care Bulk Sausage Casing Tier Off Name Role Phone PATRICIA (KAILEY), Emily DE [...] DE LA TORRE MD Unavailable Unavailab le PATRICAI (KAILEY), Emily DE LA TORRE MD Unavailable Unavailab le PATRICIA (KAILEY), Emily DE LA TORRE MD Unavailable Unavailab le PATRICIA (KAILEY), Emily DE LA TORRE MD Unavailable Unavailab le PATRICIA (KAILEY), Emily DE LA TORRE MD Unavailable Unavailab le PATRICIA (KAILEY), Emily DE LA TORRE MD Unavailable Unavailab le PATRICIA (KAILEY), Emily DE LA TORRE MD Unavailable Unavailab le PATRICIA (KAILEY), mEily DE LA TORRE MD Unavailable Unavailab le [...] KENJI PA Unavailable Unavailable Sayra, A Vernon GASETLUM Unavailable Unavailable Sayra, A Vernon GASTELUM Unavailable Unavailable Sayra, A Vernon GASTELUM Unavailable Unavailable Sayra, A Vernon GASTELUM Unavailable Unavailable Sayra, A Vrenon GASTELUM Unavailable Unavailable Sayra, A Vernon GASTELUM [...] Sayra, A Vernon GASTELUM Unavailable Unavailable Sayra, dAolfo Junior MD Unavailable Unavailable Sayra, Adolfo Junior [...] is protected by Article 27-F of the [facility] Public Health law. If you continue you may have access to information: Regarding HIV / AIDS; Provided by facilities licensed or operated by the [facility] Office of Mental Health; or Provided by the [facility] Office for People With Developmental Disabilities. If such information is present, then the following [facility] mandated warning applies: This information has [...] law may result in a fine or fci sentence or both. A general authorization for the release of medical or other information is NOT sufficient authorization for further disc losure. Encounters Encounter Providers Location Date Indications Data Source(s ) Unknown [address] [facility] [place] [place] [address] 12/20/2020 12:00:00 AM EDT [facility] Unknown [address] [facility] [place] [place] [address] 12/20/2020 12:00:00 AM EDT eCW1 ([facility]) Unknown [address] [facility] [place] [address] 12/13/2020 12:00:00 AM EDT eCW1 ([facility]) Attender: WIL GOMEZ ([place]) MDReferrer: Kenia Colbert MD 06/29/2020 08:21:04 PM EDT [facility] Attender: WIL BENTON) MDReferrer: Kenia Colbert MD 06/29/2020 08:21:04 PM EDT [facility] Outpatient [address] [facility] [place] [address] 05/28/2020 12:00:00 AM EDT eCW1 ([facility]) Outpatient [address] [facility] [place] [address] 01/27/2020 12:00:00 AM EST eCW1 ([facility]) Unknown [address] [facility] [place] [address] 01/19/2020 12:00:00 AM EST eCW1 ([facility]) Outpatient Attender: KENJI Amato [facility] 12/22/2019 12:45:00 PM EDT MEDENT ([facility], [facility]) Immunizations Vaccine Date Status Description Data Source(s) COVID-19 VACCINE [employer] 03/25/2020 12:00:00 AM EST completed [facility] Vaccine Series Complete: YESThis Data wa s Submitted to [facility] Via [employer]. COVID-19 VACCINE Pfizer 03/03/2020 12:00:00 AM EST completed [facility] Vaccine Series Complete: NOThis Data was Submitted to [facility] [employer]. Medications Medication Brand Name Start Date Product [...] 1.0 {tablet} active Diflucan 150 MG eCW1 ([facility]) Fluconazole 150 MG Oral Tablet [Diflucan] Diflucan 150 MG Di flucan 150 MG 12/20/2020 12:00:00 AM EDT 1.0 {tablet} active Diflucan 150 MG eCW1 ([facility]) 20 mg 12/15/2020 12:00:00 AM EDT capsule,delayed release (DR/EC) 90 TAKE ONE CAPSULE BY MOUTH 30 MINUTES BEFORE MORNING MEAL TAKE ONE CAPSULE BY MOUTH 30 MINUTES BEFORE MORNING MEAL SOLD: 12/20/2020 [facility] Estrogens, Conjugated (FPC) 0.625 MG/ML Vaginal Cream [Premarin] Premarin 0.625 MG/GM Premarin 0.625 MG/GM 01/27/2020 12:00:00 AM EST active Premarin 0.625 MG/GM eCW1 ([facility]) 0.625 mg/gram 01/27/2020 12:00:00 AM EST cream [...] THEN REDUCE TO TWICE WEEKLY SOLD: 06/08/2020 [facility] Estrogens, Conjugated (FPC) 0.625 MG/ML Vaginal Cream [Premarin] Premarin 0.625 MG/GM Premarin 0.625 MG/GM 01/27/2020 12:00:00 AM EST active Premarin 0.625 MG/GM eCW1 ([facility]) Estrogens, Conjugated (FPC) 0.625 MG/ML Vaginal Cream [Premarin] Premarin 0.625 MG/GM Premarin 0.625 MG/GM 01/27/2020 12:00:00 AM EST active Premarin 0.625 MG/GM eCW1 ([facility]) 0.625 mg/gram 01/27/2020 12:00:00 AM EST cream 30 INSERT 0.5GM VAGINALLY ONCE DAILY FOR 2 WEEKS THEN REDUCE TO TWICE WEEKLY INSERT 0.5GM VAGINALLY ONCE DAILY FOR 2 WEEKS THEN REDUCE TO TWICE WEEKLY SOLD: 01/27/2020 [facility] Estrogens, Conjugated (FPC) 0.625 MG/ML Vaginal Cream [Premarin] Premarin 0.625 MG/GM Premarin 0.625 MG/GM 01/27/2020 12:00:00 AM EST active Premarin 0.625 MG/GM eCW1 ([facility]) Estrogens, Conjugated (FPC) 0.625 MG/ML Vaginal Cream [Premarin] Premarin 0.625 MG/GM Premarin 0.625 MG/GM 01/27/2020 12:00:00 AM EST active Premarin 0.625 MG/GM eCW1 ([facility]) 20 mg 12/04/2019 12:00:00 AM EDT capsule,delayed [...] [facility] flintstones complete (FLINTSTONES) chewable tablet [id number] 03/06/2019 12:00:00 AM EST 2 {tbl} oral active Chew 2 tablets 1 (one) time each day. [facility] Vitamin B 12 1 MG Oral Tablet cyanocobalamin (VITAMIN B-12) 1,000 mcg tablet cyanocobalamin (VITAMIN B-12) 1,000 mcg tablet 03/06/2019 12:00:00 AM EST 1000 ug oral active Take 1 tab let (1,000 mcg total) by mouth 1 (one) time each day. [facility] Insurance Providers Payer name Policy type / Coverage type Policy ID Covered democrat ID Covered democrat's relationship to olvera Policy [place] Plan Information [place] 305/805 [id number] PROCLAIM [facility] [id number] SP [id number] [place] 306/806 [id number] SP [id number] [place] 302/307 [id number] SP [id number] [place] 302/307 [id number] SP [id number] [address] [facility] [id number] SP [id number] [place] 306/806 [id number] SP [id number] [employer] [place] [employer] PPO POS [id number] [place] [id number] Self [id number] [place] xxxxxxxxxxxx [place] 306/806 [id number] SP [id number] EXCELL[place] BCBS P [id number] S [id number] [place] 302/307 [id number] SP [id number] [place] 302/307 [id number] SP [id number] [facility] [id number] SP [id number] [employer] [facility] EMPLOYEE [id number] SP [id number] [place] 305/805 [id number] SELF PAY ONLY [place] 306/806 [id number] SP [id number] [place] 302/307 [id number] SP [id number] [place] 302/307 [id number] SP [id number] ANSI-Commercial [id number] PMA MANAGEMENT [facility] [id number] SP [id number] [place] PPO 302/307 [id number] SP [id number] [place] 306/806 [id number] SP [id number] [facility] S UNAVAILABLE [id number] C UNAVAILABLE BCBS HMO [place] [id number] S [id number] Problems, Conditions, and Diagnoses Code Display Name Description Problem Type Effective Dates Data Source(s) N95.2 [id number] Vaginal atrophy Problem 01/27/2020 12:00:00 AM EST eCW1 ([facility]) Surgeries/Procedures No Information Results ID Date Data Source [id number] 06/29/2020 09:30:00 AM EDT [facility] Name Value Range Interpretation Code Description Data Miranda rce(s) Supporting Document(s) Follow Up [facility] HVBXEe2xNaQRMcHsZACtFfuAUTpeLBrqEBBqJ0F7LXleAh1QTRjijwKxOAKpVm4+IRFhLY3hbv6hMQLo gMy [file] Juan Manuel+4L39pI9qDNqQrtqLHhwumCv9joaG69wjK/unyP03tOUw+3+CiamVC4g9CkgsYPTyvLw5T4+tqmsY [file] cMm2d0UwlIDf07pskh7Q+kvK5NQkh6Y26gfDS/MEM1XdP8b3D5RximPX38Y/sD0PdTXUEGjDqGgL+Medical Detail Representative [file] iNhk6+4MxxHupMYYpo6xEDpw8bnM16E8adZCjfZnj/UcwA9jEUH8wSHrAgI+2nurYsFHf1GEsrcG/hamper maker [file] m1dg/+Senior Facilities Manager+WgFaBLRwpFOnP6NZXcm9FktaYYLIB5RH7 [file] xz87WhIcrftFffLiBQ/b/BOILER SHOP SUPERVISOR/4WW6cqhVAQqBN2y6YIr9T6YSACeQjwBjDdxZyhqwQbXiFPwQrdl694qa [file] Ru3GZIG+CiP0ExPdVnYWjjX49LcDUe+induction machine operator/N+VWdR+gXx2KhcONO3squ9YrkpdVQLQSnoewvwLlVBZ+D [file] 2xQ03nU4u4IS80BqSpvfCS99B7K+LutRKPFUrQ++Peña [file] lWNsqRuX+peña+mxPl6slSLCUgcQwjd+y7qrdscPC/m/3QcXvtyKMMSIVBhzBAD75m4f/lN+FoJ6q55Ugn [file] kULiojxNsC4MXn2sb2a/yard crane operator/oNXwQPLOGBU+Dzltr2 [file] SLICE PLUG CUTTER OPERATOR/SljsMCU6VHJpyrBet3mYCKMMF/7M+zLKCmH1HucQI78USD+c7RdC0eV9HCqS4fxzYdZY3fN29zro [file] tony+PmuUIYgHVpayVBaYgzS9TMkcG1ZGUtal4uLUSVlq+Y9M3UlIgdcxrdAm85iSMYb9lndjO4XH42cY 8n0UUAUH/1+jCv+jUajtE4VRaKMdoqssbLyPx3W2uKuYFokaoJD8zMNovskTKlz1DKUn5BSaePdCQvaF vl1cVkfoz3RE4kj3oFyjvJnsS3BP8BHmG896m5X+ah EnKdwMvXOJRvVbD/68c7YaL5d1DZUMWcMEXKLcUNVpoo//dks//NxP6cHSotzsieVFTnd97BQXnY7/dO yx8U2w+UL9+xoLnXUXiaUyjkPsMxe37s9kkHLhVnGPyjGpb9Kqvf9Kw9HZx4EkR+iWERZIhD1/GjUR3I E49un+2CfYhDO2jBfN3K8EEMm2W1oE4OL+40jhD9Td ePLXyNyoXc8xoFBaAsGVdnZyqpn1D7y0V0dXvxQQ3dwo2Y8jvOykx1leVqTdimXyvk94GsELYYyIQ17e I8w+6YlSaYIWtgZrfeyXXmxi5JOexUYKAfqejr4RDAh/EFayH/1amLABcaINuO9t3sLeycw1oq2Mf0Rb ZJ756c943nnG+Ti7XwBXaioRPDsYmnnh27Nr/Au542 70wGzV3fT9hpojzuqM+HnCXtfm/dOCoW+PEÑA/uZyIcjwnFCtipoizcecpFMUn8oIqAUd/vgSb8AK3N2+4 [file] XiEd4wZyOtArCZWnRaXUHfa875B+peña+B3m0LCiuYGN7ARAt1N3fEUJc4+Pu+SwJB7vYO8zDVYttGmSJ+ [file] xQGZ2Q+vGSVleE/XIlcL6OuiWLuo2WlU8vOnysO/Senior Facilities Manager [file] IeCsG3u4Yy6TfCctEGTChV8SEIfz7JbBZH9pJpR/cow tester [file] 1GULNkKHXdUVKDcY0I5sLe8AEHKs8ifMkZ7uODx/terrazzo polisher [file] w9xQqezJtm2TGV/85m3VLVk8yjGlmH995oCUfzHP9H7dvSnEG/apY99fg5iz3F+mDBhXsIRoQDawF/cow tester [file] CtoQ8gi3f1QcT9KMCHhRP5zDcVwhtL3dmARTZn2fIAz5bq1okvNkdycKhS/Juan+erLhnxKea1BXOv08k d7VXfWV0KglHxPLrYoc17Omxg76WV601KTyQrV246L 9kDIbFD11kyEScipG5ujfMuIBQpvNjX7HhCw/rjjLPagUkBMQg7wayJMkLTe4UdH14aDLytVvx5Ob8bZ EnF8ZDkwrIjuaEuD0NfDmLK2odcIjjDRZwtTgcA0xEGvmclNOJpQnmp2fJPugilkxynpGSiHa2nUzPfh DjOyOGrZlz8iVHCEQbD50JGFi386m/G/HaWtzvY3Q+ IZZE8/nfbnr0JZ/RMaZnLKiC956PCueU7IOpZHHUNsJg2JY+e2XQq9U2b2+DeVhQlKPQ1bipcDpygts9 XU0hz/XcyCvRUAzeWJ1deOygwFJytX4PMrgOpHPB+n2zC7a2e6Ma92I1Y+wsNfG4hA7BeI9OQUowPigX X+GpCebsDQmGZrjz0gnchT7fMHrC78Hi7ev965 K4kva+Jd3krAkZB1ciGK8GfZUO6cS0ad/E4tR2aogI9x3FeWhBwEsBWy9cOL+vCj5KwbiiS/LPfoUnQt 9B5AO8cLqbXuWy9oiQD3h/1iQDsUKc5EfVG1xmZS4GcnSjYW4LWGhx4/14k69APb99VK57mZaQ3c0sWf pLdWHacQseWscou2iUU9xz6nocuVDpBkqUIN6w/hjO nqOhC0jGNcn0sPfV91nAgn3mP8ou8O5WNt6c6w5oA4SHCae458MfiCkUo61eoXkz/NOwm+n+CnzuhK1U /TPP4Aa/sS+zktNepanyLtU+Lqj/aMZNYG40e1v/aUelEZg7GftAtHq5ypXovBvrO8Ri7bgIBqP5kt55 WXv8ppdrz6VLp2Xr1rJCXsKnG+0LOgtrS7rRDWJ80N ONkYzisfuyba35/jJN7CVZ7WFVmiRUpHFRnhWznnvAhUtYvqwSlBMnH7I07I+hBjatr7p6uRmmqWdWHc QQNiYQtnNOpoMhB/GyvFRkDyzA9S+tGh7kg8Am8tgRGsOmIgZOqIhfUjQ9nQdJRHQx3n2z4TdvcJ7ztz iP+jS9v5F7jdgIRef2cAxZH3H63FmkzgDh2sqHG7 [file] Luz Marina+++Lixa5lzVQ/iz+gDu2BSbB2lUwk990O+q8XyA [file] UG1DZxnFQxJwGNS6olHhiY2SIP7xk4FyBZ3Cm5UstuO8cwViLRhwFVk9GwJ3TZyjJVNGYd== ID Date Data Source [id number] 03/22/2020 12:30:00 PM EST [facility] Name Value Range Interpretation Code Description Data Miranda rce(s) Supporting Document(s) SARS coronavirus 2 RNA Not Detected [facility] This lab was ordered by [facility] and reported by [facility]. Procedure Social History Code Duration Value Status Description Data Source(s ) Smoking 05/28/2020 12:00:00 AM EDT Never Smoker completed Never S moker eCW1 ([facility]) Smoking 05/28/2020 12:00:00 AM EDT Never Smoker completed Never S moker eCW1 ([facility]) Smoking 05/28/2020 12:00:00 AM EDT Never Smoker completed Never S moker eCW1 ([facility]) Smoking 05/28/2020 12:00:00 AM EDT Never Smoker completed Never S moker eCW1 ([facility]) Smoking 01/27/2020 12:00:00 AM EST Never Smoker completed Never S moker eCW1 ([facility]) Smoking 12/22/2019 12:00:00 AM EDT Patient has never smoked co mpleted Patient has never smoked MEDENT ([facility], [facility]) Vital Signs ID Date Data Source UNK Name Value Range Interpretation Code Description Data Source(s) Body weight 147.6 [lb_av] 147.6 [lb_av] eCW1 ([facility]) Body height 67 [in_i] 67 [in_i] W1 ([facility]) Systolic blood pressure 116 mm[Hg] 116 mm[Hg] e CW1 ([facility]) Body mass index (BMI) [Ratio] 23.11 kg/m2 23.11 kg/m2 W1 ([facility]) Diastolic blood pressure 64 mm[Hg] 64 mm[Hg] eCW1 ([facility]) Body weight 143.6 [lb_av] 143.6 [lb_av] eCW1 ([facility]) Body height 67 [in_i] 67 [in_i] eCW1 ([facility]) Body mass index (BMI) [Ratio] 22.49 kg/m2 22.49 kg/m2 eCW1 ([facility]) Heart rate 60 /min 60 /min eCW1 ([facility]) Respiratory rate 17 /min 17 /min eCW1 ([facility]) Body temperature 98.5 [degF] 98.5 [degF] eCW1 ( [facility]) Systolic blood pressure 120 mm[Hg] 120 mm[Hg] e CW1 ([facility]) Diastolic blood pressure 64 mm[Hg] 64 mm[Hg] eCW1 ([facility]) Systolic blood pressure 128 mm[Hg] 128 mm[Hg] M EDENT ([facility]) Diastolic blood pressure 82 mm[Hg] 82 mm[Hg] MEDENT ([facility]) Heart rate 59 /min 59 /min MEDENT ([facility], [facility]) Respiratory rate 12 /min 12 /min MEDENT ( [facility]) Oxygen saturation in Arterial blood by Pulse oximetry 97 % 97 % MEDENT ([facility]) Body temperature 98.2 [degF] 98.2 [degF] MEDENT ([facility]) Body weight 145.00 [lb_av] 145.00 [lb_av] MEDEN T ([facility], [facility]) Body height 67 [in_i] 67 [in_i] MEDENT ([facility], [facility]) 5'7" Body mass index (BMI) [Ratio] 22.7 kg/m2 22.7 k g/m2 MED[facility] ([facility], [facility]) Patient Treatment Plan of Care Planned Activity Planned Date Details Description Data Source (s) Fluconazole 150 MG Oral Tablet [Diflucan] 12/20/2020 12:00:00 AM ED T eCW1 ([facility]) Fluconazole 150 MG Oral Tablet [Diflucan] 12/20/2020 12:00:00 AM ED T eCW1 ([facility]) Estrogens, Conjugated (FPC) 0.625 MG/ML Vaginal Cream [Premarin] 01/27/2020 12:00:00 AM EST eCW1 ([facility]) flintstones complete (FLINTSTONES) chewable tablet 03/06/2019 12 :00:00 AM [facility] Vitamin B 12 1 MG Oral Tablet 03/06/2019 12:00:00 AM [facility]
[2021-01-23] MEDS ORDERED: ISOVUE-370 76% 100ML VIAL As Ordered ONE (16:42)
[2021-01-23 16:43] LABS: ALBUMIN 4.1 GM/DL (3.2-5.2); BILIRUBIN,DIRECT 0.1 MG/DL (0.0-0.2); BILIRUBIN,TOTAL 0.3 MG/DL (0.2-1.0); TOTAL PROTEIN 7.8 GM/DL (6.4-8.2)
--- NOTE | 2021-01-23 17:17 | REP ---
INDICATION: left flank pain. COMPARISON: None. TECHNIQUE: Imaging protocol: Computed tomography of the abdomen and pelvis without and with IV contrast. Contiguous 3 mm thick axial projection images were obtained through the abdomen and pelvis. 2D sagittal and coronal reconstructions were performed. Radiation optimization: All CT scans at this facility use at least one of these dose optimization techniques: automated exposure control; mA and/or kV adjustment per patient size (includes targeted exams where dose is matched to clinical indication); or iterative reconstruction. Contrast material: ISOVUE 370; Contrast volume: 100 ml; Contrast route: INTRAVENOUS (IV). FINDINGS: Heart and lung bases: The lung bases are clear. There are no pleural effusions. The heart size is normal. There is no pericardial effusion. There is calcific vascular disease of the coronary arteries. Liver: Normal. Gallbladder: Surgically absent. Spleen: Normal. Pancreas: Normal. Adrenal glands: Normal. Kidneys/bladder: The kidneys enhance normally. The urinary bladder is evaluated. Pelvic structures: The uterus is surgically absent. The ovaries are not identified. There is no free fluid the pelvis. There is no pelvic or inguinal lymphadenopathy. GI tract: Status post gastric bypass surgery with gastrojejunostomy. There are few scattered colonic diverticuli without evidence of acute inflammation. The appendix is not demonstrated. Abdominal wall and mesentery: There are no abdominal wall defects. There is no mesenteric or retroperitoneal lymphadenopathy. Abdominal aorta and vascular structures: The abdominal aorta, inferior vena cava, and portal venous system are normal. Bony structures: There is mild levoscoliosis of the thoracolumbar spine. The SI joints and hips are unremarkable. IMPRESSION: 1. No evidence of nephrolithiasis, ureterolithiasis or hydronephrosis. 2. Status post gastric bypass surgery. 3. Other findings as noted. <Electronically signed by Kiran Gaitan > 01/23/21 5243
[2021-01-23 17:39] VITALS: BP 128/88
== END 2021-01-23 17:41 | disposition home or self-care (01) ==
LOC: M ED 15:25
DX: R10.9 Unspecified abdominal pain (principal); E11.9 Type 2 diabetes mellitus without complications; R51.9 Headache, unspecified; Z98.84 Bariatric surgery status; Z91.040 Latex allergy status
CPT/HCPCS: 74177; 80047; 80076; 81001; 83690; 85025; 96361; 96374; 96375; 99284; J1885; J2405; Q9967

== ENCOUNTER 2021-02-15 18:22 | Emergency (ER) | payer BC ==
[~2021-02-15] VITALS: Ht 170.2 cm; Wt 72.8 kg
[~2021-02-15 18:22] MED LIST changes: +OMEP10CASR PO
--- OUTSIDE RECORDS SUMMARY | 2021-02-15 18:28 | CCD ---
Author Author [facility] Organization [facility] Address Unknown Phone Unavailable Care Team Providers Care A Auxiliary Name Role Phone PATRICIA (KAILEY), Emily DE [...] LA TORRE MD Unavailable Unavailab le PATRICIA (KAIELY), Emily DE LA TORRE MD Unavailable Unavailab [...] KENJI PA Unavailable Unavailable Sayra, A Vernon MD Unavailable Unavailable Sayra, A Vernon GASTELUM Unavailable Unavailable Sayra, A Vernon GASTELUM Unavailable Unavailable Sayra, A Vernon GASTELUM Unavailable Unavailable Sayra, A Vernon GASTELUM Unavailable Unavailable Sayra, A Vernon Unavailable Unavailable Sayra, A Vernon Unavailable Unavailable Sayra, A Vernon Unavailable Unavailable Sayra, A Vernon Unavailable Unavailable Sayra, A Vernon Unavailable Unavailable Sayra, A Vernon Unavailable Unavailable Sayra, A Vernon Unavailable Unavailable Sayra, A Vernon Unavailable Unavailable Sayra, A Vernon Unavailable Unavailable Sayra, A Vernon Unavailable Unavailable Sayra, A Vernon Unavailable Unavailable Sayra, A Vernon Unavailable Unavailable Sayra, A Vernon Unavailable Unavailable Sayra, A Vernon Unavailable Unavailable Sayra, A Vernon Unavailable Unavailable Sayra, A Vernon MD Unavailable Unavailable Sayra, A Vernon MD Unavailable Unavailable Sayra, A Vernon MD Unavailable Unavailable Sayra, A Vernon MD Unavailable Unavailable Sayra, A Vernon MD Unavailable Unavailable Sayra, A Vernon Unavailable Unavailable Sayra, A Vernon Unavailable Unavailable Sayra, A Vernon Unavailable Unavailable Sayra, A Vernon GASTELUM Unavailable Unavailable Sayra, A Vernon Unavailable Unavailable Sayra, A Vernon Unavailable Unavailable Sayra, A Vernon Unavailable Unavailable Sayra, A Vernon Unavailable Unavailable Sayra, A Vernon Unavailable Unavailable Sayra, A Vernon GASTELUM Unavailable Unavailable Sayra, A Vernon GASTELUM Unavailable Unavailable Sayra, A Vernon Unavailable Unavailable Sayra, A Vernon Unavailable Unavailable Sayra, A Vernon GASTELUM Unavailable [...] Vernon GASTELUM Unavailable Unavailable Sayra, A Vernon MD Unavailable Unavailable Sayra, A Vernon MD Unavailable Unavailable Sayra, A Vernon MD Unavailable Unavailable Sayra, A Vernon MD Unavailable Unavailable Sayra, A Vernon MD Unavailable Unavailable Sayra, A Vernon MD Unavailable Unavailable Sayra, A Vernon MD Unavailable Unavailable Sayra, A Vernon MD Unavailable Unavailable Sayra, A Vernon MD Unavailable Unavailable Sayra, A Venron MD Unavailable Unavailable Re-disclosure Warning The records [...] is protected by Article 27-F of the [facility] Public Health law. If you continue you may have access to information: Regarding HIV / AIDS; Provided by facilities licensed or operated by the [facility] Office of Mental Health; or Provided by the [facility] Office for People With Developmental Disabilities. If such information is present, then the following [facility] mandated warning applies: This information has been [...] law may result in a fine or custodial sentence or both. A general authorization for the release of medical or other information is NOT sufficient authorization for further disc losure. Encounters Encounter Providers Location Date Indications Data Source(s ) Unknown [address] [facility] [place] [address] 12/20/2020 12:00:00 AM EDT eCW1 (Formerly [facility]) Unknown [address] [facility] [place] [address] 12/20/2020 12:00:00 AM EDT eCW1 ([facility]) [place] [address] [facility] [place] [address] 12/13/2020 12:00:00 AM EDT eCW1 ([facility]ly [facility]) Attender: WIL BENTON) MDReferrer: Kenia Colbert MD 06/29/2020 08:21:04 PM EDT [facility] Attender: WIL BENTON) MDReferrer: Kenia Colbert MD 06/29/2020 08:21:04 PM EDT [facility] [place] [address] [facility] [place] [address] 05/28/2020 12:00:00 AM EDT eCW1 ([facility]) [place] [address] [facility] [place] [address] 01/27/2020 12:00:00 AM EST eCW1 ([facility]) Unknown [address] [facility] [place] [address] 01/19/2020 12:00:00 AM EST eCW1 ([facility]ly [facility]) Outpatient Attender: KENJI Amato [facility] 12/22/2019 12:45:00 PM EDT MEDENT ([facility]) Immunizations Vaccine Date Status Description Data Source(s) COVID-19 VACCINE [employer] 03/25/2020 12:00:00 AM EST completed [facility] Vaccine Series Complete: YESThis Data wa s Submitted to [facility] [employer]. COVID-19 VACCINE Pfizer 03/03/2020 12:00:00 AM EST completed [facility] Vaccine Series Complete: NOThis Data was Submitted to [facility] [employer]. Medications Medication Brand Name Start Date Product [...] 1.0 {tablet} active Diflucan 150 MG eCW1 ([facility]) Fluconazole 150 MG Oral Tablet [Diflucan] Diflucan 150 MG Di flucan 150 MG 12/20/2020 12:00:00 AM EDT 1.0 {tablet} active Diflucan 150 MG eCW1 ([facility]) 20 mg 12/15/2020 12:00:00 AM EDT capsule,delayed release (DR/EC) 90 TAKE ONE CAPSULE BY MOUTH 30 MINUTES BEFORE MORNING MEAL TAKE ONE CAPSULE BY MOUTH 30 MINUTES BEFORE MORNING MEAL SOLD: 12/20/2020 [facility] Estrogens, Conjugated (SKILLED NURSING) 0.625 MG/ML Vaginal Cream [Premarin] Premarin 0.625 MG/GM Premarin 0.625 MG/GM 01/27/2020 12:00:00 AM EST active Premarin 0.625 MG/GM eCW1 ([facility]) 0.625 mg/gram 01/27/2020 12:00:00 AM EST cream 30 INSERT 0.5GM VAGINALLY ONCE DAILY FOR 2 WEEKS THEN REDUCE TO TWICE WEEKLY INSERT 0.5GM VAGINALLY ONCE DAILY FOR 2 WEEKS THEN REDUCE TO TWICE WEEKLY SOLD: 01/06/2021 [facility] 0.625 mg/gram 01/27/2020 12:00:00 AM EST cream 30 INSERT 0.5GM VAGINALLY ONCE DAILY FOR 2 WEEKS THEN REDUCE TO TWICE WEEKLY INSERT 0.5GM VAGINALLY ONCE DAILY FOR 2 WEEKS THEN REDUCE TO TWICE WEEKLY SOLD: 06/08/2020 [facility] Estrogens, Conjugated (SKILLED NURSING) 0.625 MG/ML Vaginal Cream [Premarin] Premarin 0.625 MG/GM Premarin 0.625 MG/GM 01/27/2020 12:00:00 AM EST active Premarin 0.625 MG/GM eCW1 ([facility]) Estrogens, Conjugated (SKILLED NURSING) 0.625 MG/ML Vaginal Cream [Premarin] Premarin 0.625 MG/GM Premarin 0.625 MG/GM 01/27/2020 12:00:00 AM EST active Premarin 0.625 MG/GM eCW1 ([facility]) 0.625 mg/gram 01/27/2020 12:00:00 AM EST cream 30 INSERT 0.5GM VAGINALLY ONCE DAILY FOR 2 WEEKS THEN REDUCE TO TWICE WEEKLY INSERT 0.5GM VAGINALLY ONCE DAILY FOR 2 WEEKS THEN REDUCE TO TWICE WEEKLY SOLD: 01/27/2020 [facility] Estrogens, Conjugated (SKILLED NURSING) 0.625 MG/ML Vaginal Cream [Premarin] Premarin 0.625 MG/GM Premarin 0.625 MG/GM 01/27/2020 12:00:00 AM EST active Premarin 0.625 MG/GM eCW1 ([facility]) Estrogens, Conjugated (SKILLED NURSING) 0.625 MG/ML Vaginal Cream [Premarin] Premarin 0.625 MG/GM Premarin 0.625 MG/GM 01/27/2020 12:00:00 AM EST active Premarin 0.625 MG/GM eCW1 ([facility]) 20 mg 12/04/2019 12:00:00 AM EDT capsule,delayed [...] [facility] flintstones complete (FLINTSTONES) chewable tablet [id number] 03/06/2019 12:00:00 AM EST 2 {tbl} oral active Chew 2 tablets 1 (one) time each day. [facility] Vitamin B 12 1 MG Oral Tablet cyanocobalamin (VITAMIN B-12) 1,000 mcg tablet cyanocobalamin (VITAMIN B-12) 1,000 mcg tablet 03/06/2019 12:00:00 AM EST 1000 ug oral active Take 1 tab let (1,000 mcg total) by mouth 1 (one) time each day. [facility] Insurance Providers Payer name Policy type / Coverage type Policy ID Covered democrat ID Covered democrat's relationship to olvera Policy [place] Plan Information [place] 305/805 [id number] PROCLAIM [facility] [id number] SP [id number] [place] 306/806 [id number] SP [id number] [place] 302/307 [id number] SP [id number] [place] 302/307 [id number] SP [id number] PMA MANAGEMENT [facility] [id number] SP [id number] [place] 306/806 [id number] SP [id number] [employer] [place] P[place] POS [id number] [place] [id number] Self [id number] [place] [id number] xxxxxxxxxxxx [place] 306/806 [id number] SP [id number] [place] BCBS P [id number] S [id number] [place] 302/307 [id number] SP [id number] [place] 302/307 [id number] SP [id number] PMA MANAGEMENT [facility] [id number] SP [id number] [employer] EMPLOYEE [id number] SP [id number] [place] 305/805 [id number] [place] 306/806 [id number] SP [id number] SELF PAY ONLY [place] PPO 302/307 [id number] SP [id number] [place] 302/307 [id number] SP [id number] ANSI-Commercial [id number] [facility] MANAGEMENT [facility] [id number] SP [id number] [place] PPO 302/307 [id number] SP [id number] [place] 306/806 [id number] SP [id number] [facility] S UNAVAILABLE [id number] C UNAVAILABLE BCBS HMO [place] [id number] S [id number] Problems, Conditions, and Diagnoses Code Display Name Description Problem Type Effective Dates Data Source(s) N95.2 [id number] Vaginal atrophy Problem 01/27/2020 12:00:00 AM EST eCW1 ([facility]) Surgeries/Procedures No Information Results ID Date Data Source [id number] 06/29/2020 09:30:00 AM EDT [facility] Name Value Range Interpretation Code Description Data Miranda rce(s) Supporting Document(s) Follow Up [facility] AACPUg0dEzEKUzWwNPYgKyrKJPgnOZzuYZFzB8C8KYobLt5PVPnwslPeUOLbGw1+PBVqXK7kef2mLSQa gMy [file] Juan Manuel+6B13bG8tEPbCnqdOBkfctFy6vjgE05paE/knbC40cBPi+3+WndeYY2p3LedsRYUqmFr2N7+tqmsY [file] uZz4a0IqhKTz76dccc3D+maN4VOvx7C51vsSI/STN4IbV4t0P9EsuoYU33K/oS8XjEUQGAoPoBgN+Mold Cleaning And Storage Supervisor [file] iNhk6+1RpiFjgLTExg2wOZnd7tiY75M7svWIxpCvj/BnqA9yDCQ7gXQfJsX+2edpIrDPj0FUjrxW/bankruptcy judge [file] m1dg/+Substance Abuse Technician+VzYcTTNtgWPyS5IEXkr8CjypSSQQR8TS4 [file] ho03RdNasfrLhwEaQT/b/LIGHT AIR DEFENSE ARTILLERY CREWMEMBER/6TI4jvpXRHcZD3l4RFp3W6BCTRuBjeFiZfmEywpeTyAyANkMlea093cv [file] Qu2FWNB+FtV8ZfJcSfKVacU04EaPNd+labor relations teacher/N+VWdR+bHh9NdnFHD0pyq2SibiyWQQENotdigcUrOQZ+D [file] 1eC99vH0i8PV75AfEybhVF92D8T+LutRKPFUrQ++Peña [file] lWNsqRuX+peña+gfGb8wiCMCOlwTmhu+k2omjvyOG/m/4FgKfnuFKAFCHFylQMR99w9f/lN+LfQ7m25Zie [file] iBFzzueFjT8NFs1wg1w/brazer crawler torch/oNXwQPLOGBU+Dzltr2 [file] TRAP SETTER/IadhDOF3SNIwnwRmv5cEQYDPQ/7M+vYTOpB7UcyTA87NZQ+e3OqC7hX0XBtP2vwpShRR7dF45gut [file] tony+SfeGGIqRWofmBEzHgsO0IYjqE5KWWtyg7yHBNSwq+E9R5AxWctolyqCx01sXDEw0lqueA8HS24rL 8m4JPACJ/1+jCv+oWjjcT2WLnBImjoqpuRgUw3M2zGkTUmwmvAG8eASasthZQwg7QQOc7NBujDfRWvkN ip7oAxfhm0WV6rj2iYyemVdkR9KH3IFqR281w3O+ah EnKdwMvXOJRvVbD/90x8PeK3f1RDVIOvHZSWPqGVZqsl//dks//SsW5wIFphloyeCQLuz30UBFrM4/dO yx8U2w+UL9+nnJpLMTgnLkzzFqLbk08v2zhLRnAqEOeoZpd2Ixba2Vx2NZq7DnA+iWERZIhD1/GjUR3I E49un+2OeWwTM1jOqG7P9LVZm2M8bW6RL+12keB9Dq pJMRjScnDz2rpCElDaLKqsVmncz9M6t0X2kRbeAH6vwz0H8pyAigd3xwQgUmegElzv16XfQSKJcXT92m I8w+8QbPxTXYsdAkgciLKhpk6NCmvWJQJpdaib9PNCa/EFayH/5lrVSHrpTDkZ2v1cSlfza0ze3Uc4Cb OB175f006nnE+Cg4JzRDulxPDNpFvxfe64Tw/Au542 58bUhJ7kR5etdxjhjN+HnCXtfm/dOCoW+PEÑA/vTeEupmhIRjmbzgnbupkRYUb8tHrRIv/eoCv9WX6M2+4 [file] NgMg4bRrIkUgWKZdZfNZIyx398J+peña+Z4y6VRhiTNU1HELf9Z8gIQEx2+Pu+QeWX1fCO0eSGVhcNrUP+ [file] xQGZ2Q+vGSVleE/KNqfQ7KmnCCpl0OnQ6jRtyfM/Substance Abuse Technician [file] HqOnR5f1Lx9KhUohIBTOiV8FOErm9ReQSO7wBsX/cloth beamer [file] 6QCZCoKLNmIRKFyW4C8bRk9GBSPf9qzXwB3kOOr/straw hat brusher [file] g3sQmciDuc1VDX/39c0WSRl8hsJoiI522uFHsnDZ6V5zcTwNY/ouZ92fz8hz3O+mDBhXsIRoQDawF/cloth beamer [file] IyjF5sf7i1AdF7BOWCaZD9cUuUwyiL9glYSMNf7kSSq5iv6pqdUlwvrJxG/Juan+veCzivBkk1AMBd57p x1EFzGH3OhiPrHUfLrp41Dkyg92WF833QIlPmY185E 2iUGjNV63maIHulqS2tuuJcLOZcnXgC3PkBp/vocEEezHlIHWu4xpmLYrADe8BbT39mZFbtUcg3Jp0jG ItH2MLjjsHjbgTmY6FfUtVU8bumXsiYZNsiTbfE6yALjwdxRIXqEtgn1tNGuelsgxcoiXHyQt6zPuPpp HsWeYQbGeo1pFRNEWeK92AKGw472q/G/BnFzkxT3B+ IZZE8/krxke2MC/EEiXoLJkW743OAixT9ENmCUCFXpNp1EV+i6JKs2I0a0+VgSoXsUAT9tjqbCrperx2 XU0hz/UztCuWVZfgTK3ifFwspKCdzY8SJhoEpHDS+w1zM9f1i1Wf87L2I+uqAcB5dU8SvL3SXXxcInsX X+BnSfrvSEkEQdyg8yrkzL4lERuV29Th1st031 [file] Luz Marina+++Nnly6glVZ/iz+qEh1KZvO4uYaw381U+q8XyA [file] PN0CWzmEWgRyQIA7dwMooS3LBL8qa3BbII7Dr0LuvhN3xqZeRWqeNAh0AdJ9ILrrSPLSPd== ID Date Data Source [id number] 03/22/2020 12:30:00 PM EST [facility] Name Value Range Interpretation Code Description Data Miranda rce(s) Supporting Document(s) SARS coronavirus 2 RNA Not Detected [facility] This lab was ordered by [facility] and reported by [facility]. Procedure Social History Code Duration Value Status Description Data Source(s ) Smoking 05/28/2020 12:00:00 AM EDT Never Smoker completed Never S moker eCW1 ([facility]) Smoking 05/28/2020 12:00:00 AM EDT Never Smoker completed Never S moker eCW1 ([facility]) Smoking 05/28/2020 12:00:00 AM EDT Never Smoker completed Never S moker eCW1 ([facility]) Smoking 05/28/2020 12:00:00 AM EDT Never Smoker completed Never S moker eCW1 ([facility]) Smoking 01/27/2020 12:00:00 AM EST Never Smoker completed Never S moker eCW1 ([facility]) Smoking 12/22/2019 12:00:00 AM EDT Patient has never smoked co mpleted Patient has never smoked MEDENT ([facility]) Vital Signs ID Date Data Source UNK Name Value Range Interpretation Code Description Data Source(s) Body weight 147.6 [lb_av] 147.6 [lb_av] eCW1 ([facility]) Body height 67 [in_i] 67 [in_i] eCW1 ([facility]) Body mass index (BMI) [Ratio] 23.11 kg/m2 23.11 kg/m2 eCW1 ([facility]) Systolic blood pressure 116 mm[Hg] 116 mm[Hg] e CW1 ([facility]) Diastolic blood pressure 64 mm[Hg] 64 mm[Hg] eCW1 ([facility]) Body weight 143.6 [lb_av] 143.6 [lb_av] eCW1 ([facility]) Body height 67 [in_i] 67 [in_i] eCW1 ([facility]) Body mass index (BMI) [Ratio] 22.49 kg/m2 22.49 kg/m2 eCW1 ([facility]) Heart rate 60 /min 60 /min eCW1 ([facility]) Respiratory rate 17 /min 17 /min eCW1 ([facility]) Body temperature 98.5 [degF] 98.5 [degF] eCW1 ( [facility]) Systolic blood pressure 120 mm[Hg] 120 mm[Hg] e CW1 ([facility]) Diastolic blood pressure 64 mm[Hg] 64 mm[Hg] eCW1 ([facility]) Systolic blood pressure 128 mm[Hg] 128 mm[Hg] M EDENT ([facility]) Diastolic blood pressure 82 mm[Hg] 82 mm[Hg] MEDENT ([facility]) Heart rate 59 /min 59 /min MEDENT ([facility]) Respiratory rate 12 /min 12 /min MEDENT ( [facility]) Oxygen saturation in Arterial blood by Pulse oximetry 97 % 97 % MEDENT ([facility]) Body temperature 98.2 [degF] 98.2 [degF] MEDENT ([facility]) Body weight 145.00 [lb_av] 145.00 [lb_av] MEDEN T ([facility]) Body height 67 [in_i] 67 [in_i] MEDENT ([facility]) 5'7" Body mass index (BMI) [Ratio] 22.7 kg/m2 22.7 k g/m2 MEDENT ([facility]) Patient Treatment Plan of Care Planned Activity Planned Date Details Description Data Source (s) Fluconazole 150 MG Oral Tablet [Diflucan] 12/20/2020 12:00:00 AM ED T eCW1 ([facility]) Fluconazole 150 MG Oral Tablet [Diflucan] 12/20/2020 12:00:00 AM ED T eCW1 ([facility]) Estrogens, Conjugated (SKILLED NURSING) 0.625 MG/ML Vaginal Cream [Premarin] 01/27/2020 12:00:00 AM EST eCW1 ([facility]) flintstones complete (FLINTSTONES) chewable tablet 03/06/2019 12 :00:00 AM [facility] Vitamin B 12 1 MG Oral Tablet 03/06/2019 12:00:00 AM [facility]
[2021-02-15 19:48] LABS: BASO % 0.5 % (0.0-1.0); EOS # 0.1 10^3/uL (0.0-0.5); HEMATOCRIT 38.1 % (36.0-47.0); HEMOGLOBIN 12.8 g/dl (12.0-15.5); LYMPH # 2.7 10^3/uL (1.5-5.0); LYMPH % 48.8 % (24.0-44.0); MEAN CORPUSCULAR HEMOGLOBIN 29.3 pg (27.0-33.0); MEAN CORPUSCULAR HGB CONC 33.6 g/dl (32.0-36.5); MEAN CORPUSCULAR VOLUME 87.2 fl (80.0-96.0); MONO # 0.4 10^3/uL (0.0-0.8); MONO % 6.6 % (2.0-8.0); NEUTROPHILS # 2.4 10^3/uL (1.5-8.5); NEUTROPHILS % 42.1 % (36.0-66.0); PLATELET COUNT, AUTOMATED 190 10^3/uL (150-450); RED BLOOD COUNT 4.37 10^6/uL (4.00-5.40); WHITE BLOOD COUNT 5.6 10^3/uL (4.0-10.0)
[2021-02-15 20:11] LABS: ALBUMIN 3.6 GM/DL (3.2-5.2); ALT/SGPT 24 U/L (12-78); BILIRUBIN,TOTAL 0.3 MG/DL (0.2-1.0); BLOOD UREA NITROGEN 17 MG/DL (7-18); CALCIUM LEVEL 9.1 MG/DL (8.5-10.1); CARBON DIOXIDE LEVEL 29 MEQ/L (21-32); CHLORIDE LEVEL 107 MEQ/L (98-107); CREATININE FOR GFR 0.85 MG/DL (0.55-1.30); GLOMERULAR FILTRATION RATE > 60.0 (>51); GLUCOSE, FASTING 127 MG/DL (70-100); POTASSIUM SERUM 3.8 MEQ/L (3.5-5.1); SODIUM LEVEL 142 MEQ/L (136-145); TOTAL PROTEIN 6.9 GM/DL (6.4-8.2)
--- OUTSIDE RECORDS SUMMARY | 2021-02-15 20:16 | CCD ---
Author Author [facility] Organization [facility] Address Unknown Phone Unavailable Care Team Providers Care Manager Poker Name Role Phone PATRICIA (KAILEY), Emily DE LA TORRE MD Unavailable Unavailab le PATRICIA (KAILEY), Emily DE LA TORRE MD Unavailable Unavailab le PATRICIA (KAILEY), Emily DE LAT ORRE MD Unavailable Unavailab le PATRICIA (KAILEY), Emily [...] LA TORRE MD Unavailable Unavailab le PATRICIA (KAILYE), Emily DE LA TORRE MD Unavailable Unavailab [...] Unavailable Unavailab le PATRICIA (KAILEY), Emily DE AL TORRE MD Unavailable Unavailab le PATRICIA (KAILEY), [...] Unavailable Sayra, A Vernon MD Unavailable Unavailable Re-disclosure Warning The records [...] by Article 27-F of the [facility] Public Health law. If you continue you may have access to information: Regarding HIV / AIDS; Provided by facilities licensed or operated by the [facility] Office of Mental Health; or Provided by the [facility] Office for People With Developmental Disabilities. If such information is present, then the following [facility] mandated warning applies: This information has been [...] law may result in a fine or nursing home sentence or both. A general authorization for the release of medical or other information is NOT sufficient authorization for further disc losure. Encounters Encounter Providers Location Date Indications Data Source(s ) Unknown [address] [facility] [place] [address] 12/20/2020 12:00:00 AM EDT eCW1 (Critical access hospital) Unknown [address] [facility] [place] [address] 12/20/2020 12:00:00 AM EDT eCW1 (Critical access hospital) Unknown [address] [facility] [address] [place] [address] 12/13/2020 12:00:00 AM EDT eCW1 (Critical access hospital) Attender: WIL BENTON) MDReferrer: Kenia Colbert MD 06/29/2020 08:21:04 PM EDT [facility] Attender: WIL BENTON) MDReferrer: Kenia Colbert MD 06/29/2020 08:21:04 PM EDT [facility] [place] [address] [facility] [place] [address] 05/28/2020 12:00:00 AM EDT eCW1 (Critical access hospital) [place] [address] [facility] [place] [address] 01/27/2020 12:00:00 AM EST eCW1 (Critical access hospital) Unknown [address] [facility] [place] [address] 01/19/2020 12:00:00 AM EST eCW1 (Critical access hospital) Outpatient Attender: KENJI Amato [facility] 12/22/2019 12:45:00 PM EDT MEDENT ([facility]) Immunizations Vaccine Date Status Description Data Source(s) COVID-19 VACCINE [employer] 03/25/2020 12:00:00 AM EST completed [facility] Vaccine Series Complete: YESThis Data wa s Submitted to [facility] [employer] (formerly [email or web address]). COVID-19 VACCINE Pfizer 03/03/2020 12:00:00 AM EST completed [facility] Vaccine Series Complete: NOThis Data was Submitted to [facility] [employer] ([facility] [email or web address]). Medications Medication Brand Name Start Date Product [...] 1.0 {tablet} active Diflucan 150 MG eCW1 ([facility]) Fluconazole 150 MG Oral Tablet [Diflucan] Diflucan 150 MG Di flucan 150 MG 12/20/2020 12:00:00 AM EDT 1.0 {tablet} active Diflucan 150 MG eCW1 ([facility]) 20 mg 12/15/2020 12:00:00 AM EDT capsule,delayed release (DR/EC) 90 TAKE ONE CAPSULE BY MOUTH 30 MINUTES BEFORE MORNING MEAL TAKE ONE CAPSULE BY MOUTH 30 MINUTES BEFORE MORNING MEAL SOLD: 12/20/2020 [facility] Estrogens, Conjugated ([facility]) 0.625 MG/ML Vaginal Cream [Premarin] Premarin 0.625 MG/GM Premarin 0.625 MG/GM 01/27/2020 12:00:00 AM EST active Premarin 0.625 MG/GM eCW1 ([facility]) 0.625 mg/gram 01/27/2020 12:00:00 AM EST cream 30 INSERT 0.5GM VAGINALLY ONCE DAILY FOR 2 WEEKS THEN REDUCE TO TWICE WEEKLY INSERT 0.5GM VAGINALLY ONCE DAILY FOR 2 WEEKS THEN REDUCE TO TWICE WEEKLY SOLD: 01/06/2021 [facility] 0.625 mg/gram 01/27/2020 12:00:00 AM EST cream 30 INSERT 0.5GM VAGINALLY ONCE DAILY FOR 2 WEEKS THEN REDUCE TO TWICE WEEKLY INSERT 0.5GM VAGINALLY ONCE DAILY FOR 2 WEEKS THEN REDUCE TO TWICE WEEKLY SOLD: 06/08/2020 [facility] Estrogens, Conjugated ([facility]) 0.625 MG/ML Vaginal Cream [Premarin] Premarin 0.625 MG/GM Premarin 0.625 MG/GM 01/27/2020 12:00:00 AM EST active Premarin 0.625 MG/GM eCW1 ([facility]) Estrogens, Conjugated ([facility]) 0.625 MG/ML Vaginal Cream [Premarin] Premarin 0.625 MG/GM Premarin 0.625 MG/GM 01/27/2020 12:00:00 AM EST active Premarin 0.625 MG/GM eCW1 ([facility]) 0.625 mg/gram 01/27/2020 12:00:00 AM EST cream 30 INSERT 0.5GM VAGINALLY ONCE DAILY FOR 2 WEEKS THEN REDUCE TO TWICE WEEKLY INSERT 0.5GM VAGINALLY ONCE DAILY FOR 2 WEEKS THEN REDUCE TO TWICE WEEKLY SOLD: 01/27/2020 [facility] Estrogens, Conjugated ([facility]) 0.625 MG/ML Vaginal Cream [Premarin] Premarin 0.625 MG/GM Premarin 0.625 MG/GM 01/27/2020 12:00:00 AM EST active Premarin 0.625 MG/GM eCW1 ([facility]) Estrogens, Conjugated ([facility]) 0.625 MG/ML Vaginal Cream [Premarin] Premarin 0.625 MG/GM Premarin 0.625 MG/GM 01/27/2020 12:00:00 AM EST active Premarin 0.625 MG/GM eCW1 ([facility]) 20 mg 12/04/2019 12:00:00 AM EDT [...] [facility] flintstones complete (FLINTSTONES) chewable tablet [id number] 03/06/2019 12:00:00 AM EST 2 {tbl} oral active Chew 2 tablets 1 (one) time each day. [facility] Vitamin B 12 1 MG Oral Tablet cyanocobalamin (VITAMIN B-12) 1,000 mcg tablet cyanocobalamin (VITAMIN B-12) 1,000 mcg tablet 03/06/2019 12:00:00 AM EST 1000 ug oral active Take 1 tab let (1,000 mcg total) by mouth 1 (one) time each day. [facility] Insurance Providers Payer name Policy type / Coverage type Policy ID Covered republican ID Covered republican's relationship to olvera Policy [place] Plan Information [place] 305/805 [id number] PROCLAIM [facility] [id number] SP [id number] [place] 306/806 [id number] SP [id number] [place] 302/307 [id number] SP [id number] [place] 302/307 [id number] SP [id number] PMA MANAGEMENT [facility] [id number] SP [id number] [place] 306/806 [id number] SP [id number] [employer] [place] [employer] PPO POS [id number] [place] [id number] Self [id number] [place] [id number] xxxxxxxxxxxx [place] 306/806 [id number] SP [id number] EXCELLUS BCBS P [id number] S VYA [place] PPO 302/307 [id number] SP [id number] [place] 302/307 [id number] SP [id number] PMA MANAGEMENT [facility] [id number] SP [id number] [employer] [facility] EMPLOYEE [id number] SP [id number] [place] 305/805 [id number] [place] 306/806 [id number] SP [id number] SELF PAY ONLY [place] PPO 302/307 [id number] SP [id number] [place] 302/307 [id number] SP [id number] ANSI-Commercial [id number] [facility] MANAGEMENT [facility]EL [facility] [id number] SP [id number] [place] PPO 302/307 [id number] SP [id number] [place] 306/806 [id number] SP [id number] [facility] S UNAVAILABLE [id number] C UNAVAILABLE BCBS HMO [place] O [id number] S [id number] Problems, Conditions, and Diagnoses Code Display Name Description Problem Type Effective Dates Data Source(s) N95.2 [id number] Vaginal atrophy Problem 01/27/2020 12:00:00 AM EST eCW1 ([facility]) Surgeries/Procedures No Information Results ID Date Data Source [id number] 06/29/2020 09:30:00 AM EDT [facility] Name Value Range Interpretation Code Description Data Miranda rce(s) Supporting Document(s) Follow Up [facility] CWWJNt1sBfSZFaPdEJJaXzyIKQcvKLewFLWtJ9U4KRheSa3OPTvfdjEcBLJdUu2+VHQdWC0cim5aXSDo gMy [file] Juan Manuel+1D54tN6tPNtAgphWUokkoIf9zjeQ59smY/nuoX59cROp+3+JynpSG9q3RzibIAJmwSp9Q7+tqmsY [file] Lay Out Worker [file] iNhk6+7IflPiqBNMmj5hSGfb9bvL87N6bvLGkxEyo/LbkO0fHLT6fBGeWcH+9hbhCqWSl7UHapdY/neurology technician [file] m1dg/+Director And Professor+LzBgIUBwaILpM0JHOsn2JoovHVQMT8NO4 [file] ak81SjMjehyKqxYcPA/b/SCREW SUPERVISOR/4RM1idpENVjTM4h8KWf5M3SCKBaCwdAmLxmBakmxRwAnIFgXfxd568kc [file] 9fG11zQ4j7DV52RcOhuwKQ79Z9L+LutRKPFUrQ++Peña [file] lWNsqRuX+peña+puFt2igOGALawGxvc+j8zpulgNJ/m/6ZrRglfQZJFIFAvrCLZ17s0f/lN+WjM3y38Jcx [file] kGLruybLhJ1BIr0wx3a/crankshaft grinder/oNXwQPLOGBU+Dzltr2 [file] DINING ROOM MAID/QomkZNR7ZEMsskHqr4pWXNCNB/7M+vDWAmD7ZgzYO92ZDP+u7XtH0cU1VKcB9xfsQpNV6vF87brn [file] tony+RlwJEApJXbchRVlNaaI4MDihA5LDFbyw2xNMYQnu+L7V5RtIcfjztcLz50qSJFz3fqrjC8KI66aJ 2i3OZNMH/1+jCv+qVzjxB2CNwINwdartmXzUx0G6aPtUQiglyGW6oIZgzceUJxb6HMIi1LQuqScUKwrN xp0fBwxot6FL5yd3rGfykPehF1XS2EIlX965q8C+ah EnKdwMvXOJRvVbD/52i0ZjX2q9XMUZFvGBJDLpUPCkbh//dks//PgR2mVLdsftvmRSIbv52RYZvD1/dO yx8U2w+UL9+wjFhRFLbvYjnrNqYmc42s9wgNNnWtIPsmJji9Zenq3Vz4YAi5ByC+iWERZIhD1/GjUR3I E49un+2IoWyLL9vVxQ6X3UGEw2E7kB3WO+61lbT0Ud gUGPzFhxOw6tnGVcHvUBkfXdoey1W1c9A8cJajRI9jpx0A8drSywx2neRbNdtdZrla89HyKAICpKM54q I8w+6ReWbHHDavZkinoOPzys8IGazUUIHkivts3LVYl/EFayH/9zzYNHvtQSqR0r5kUtgny8pk5Kk3Rn DX424q870ocQ+No4NsELiwaAMXfOhwiz61Nj/Au542 23kAkB9uA4jaszsxaG+HnCXtfm/dOCoW+PEÑA/bWnUhhdvTWnipvltckidQWJj0hRmQNs/csJq4ZE7F5+4 [file] QaUn5oFeShWzXFUxCzOCHvs058A+peña+Z2z8VCmjUTV8PUVp5N3nVSLu8+Pu+PyZL5dMQ8rNQVzuFrRO+ [file] xQGZ2Q+vGSVleE/MCvkQ8MzmPNbi3QnZ0tHbyxQ/Director And Professor [file] FnSxR0d2Na0UpLmbGADLxU0LKQku8MkPOF9sTeK/supervisor plastering [file] 4OJGJyUCCxWYETzL4V2eRh4PFZQf9awUyA3fMIp/worm picker [file] p3zEzqoYfp2AXO/25c8ZKDi8hgVomM922nGXonHY8E1lxFuFJ/acA23xv7gv0A+mDBhXsIRoQDawF/supervisor plastering [file] ToqX7cp8q1ObC0LTUDhOO0eQwDwjzF9isCRPWp9gKVa9ox5iwqCngnxRiT/Juan+slPnuhHgw3NRPt65g l7LLqEU0ZnaSoEYmDtu77Gerw51DQ144CSbEsF670V 4jSUzMD45noZJaacS7pcmUaPSQmnBuJ4MeDx/tlvJQorLgDQSf0oqdTGpVLi5WpX23eJGwgZof6Tk8iO IoC4YCmtmAbivPnR7PmWnKB8zqtVeyBSZleOujA0qWKgtbvDCMuGqle9lSIrdnmqgheyXOfKw7eJoTuu RqUuWDxDrx1tZKFZSgV14HOYb775h/G/VfUkknD7Q+ IZZE8/njqhe6FL/AVePwSVmY622PJryQ7CGyKNYIYqAc9NS+f9PYb8U7f4+NtRiZtSFE9zpzrAoaafx3 XU0hz/RulTnZDGgrWN7wtCxaeLIlkR8PWbuDkTFN+f4aL6o9m5Py72O1A+tqNjY0gA8XzK1OQJpbSppB X+ZkSlliUKwEQcss7oqrlH7zLCiU01Gi5tm099 [file] Luz Marina+++Phzf9srCZ/iz+wIr3DWbO3mMgz917H+q8XyA [file] YX0GWfdGTzCfWNN7wyCykZ1USU4cv4AdJV1Nq7WgvdB0coVwKIsaZAk6FyN7JAcnUMEXHn== ID Date Data Source [id number] 03/22/2020 12:30:00 PM EST [facility] Name Value Range Interpretation Code Description Data Miranda rce(s) Supporting Document(s) SARS coronavirus 2 RNA Not Detected [facility] This lab was ordered by [facility] and reported by [facility]. Procedure Social History Code Duration Value Status Description Data Source(s ) Smoking 05/28/2020 12:00:00 AM EDT Never Smoker completed Never S moker eCW1 ([facility]) Smoking 05/28/2020 12:00:00 AM EDT Never Smoker completed Never S moker eCW1 ([facility]) Smoking 05/28/2020 12:00:00 AM EDT Never Smoker completed Never S moker eCW1 ([facility]) Smoking 05/28/2020 12:00:00 AM EDT Never Smoker completed Never S moker eCW1 ([facility]) Smoking 01/27/2020 12:00:00 AM EST Never Smoker completed Never S moker eCW1 ([facility]) Smoking 12/22/2019 12:00:00 AM EDT Patient has never smoked co mpleted Patient has never smoked [facility] ([facility], [facility]) Vital Signs ID Date Data Source UNK Name Value Range Interpretation Code Description Data Source(s) Body weight 147.6 [lb_av] 147.6 [lb_av] eCW1 ([facility]) Body height 67 [in_i] 67 [in_i] eCW1 ([facility]) Body mass index (BMI) [Ratio] 23.11 kg/m2 23.11 kg/m2 eCW1 ([facility]) Systolic blood pressure 116 mm[Hg] 116 mm[Hg] e CW1 ([facility]) Diastolic blood pressure 64 mm[Hg] 64 mm[Hg] eCW1 ([facility]) Body weight 143.6 [lb_av] 143.6 [lb_av] eCW1 ([facility]) Body height 67 [in_i] 67 [in_i] eCW1 ([facility]) Body mass index (BMI) [Ratio] 22.49 kg/m2 22.49 kg/m2 eCW1 ([facility]) Heart rate 60 /min 60 /min eCW1 ([facility]) Respiratory rate 17 /min 17 /min eCW1 ([facility]) Body temperature 98.5 [degF] 98.5 [degF] eCW1 ( [facility]) Systolic blood pressure 120 mm[Hg] 120 mm[Hg] e CW1 ([facility]) Diastolic blood pressure 64 mm[Hg] 64 mm[Hg] eCW1 ([facility]) Systolic blood pressure 128 mm[Hg] 128 mm[Hg] M EDENT ([facility], [facility]) Diastolic blood pressure 82 mm[Hg] 82 mm[Hg] MEDENT ([facility], [facility]) Heart rate 59 /min 59 /min MEDENT ([facility], [facility]) Respiratory rate 12 /min 12 /min MEDENT ( [facility], [facility]) Oxygen saturation in Arterial blood by Pulse oximetry 97 % 97 % MEDENT ([facility], [facility]) Body temperature 98.2 [degF] 98.2 [degF] MEDENT ([facility], [facility]) Body weight 145.00 [lb_av] 145.00 [lb_av] MEDEN T ([facility], [facility]) Body height 67 [in_i] 67 [in_i] MEDENT ([facility], [facility]) 5'7" Body mass index (BMI) [Ratio] 22.7 kg/m2 22.7 k g/m2 MEDENT ([facility], [facility]) Patient Treatment Plan of Care Planned Activity Planned Date Details Description Data Source (s) Fluconazole 150 MG Oral Tablet [Diflucan] 12/20/2020 12:00:00 AM ED T eCW1 ([facility]) Fluconazole 150 MG Oral Tablet [Diflucan] 12/20/2020 12:00:00 AM ED T eCW1 ([facility]) Estrogens, Conjugated ([facility]) 0.625 MG/ML Vaginal Cream [Premarin] 01/27/2020 12:00:00 AM EST eCW1 ([facility]) flintstones complete (FLINTSTONES) chewable tablet 03/06/2019 12 :00:00 AM [facility] Vitamin B 12 1 MG Oral Tablet 03/06/2019 12:00:00 AM [facility]
[2021-02-15 20:21] LABS: HEPATITIS B SURFACE ANTIBODY POSITIVE (POSITIVE)
[2021-02-15 20:32] LABS: HEPATITIS B SURFACE ANTIGEN NEGATIVE (NEGATIVE)
[2021-02-15 20:39] VITALS: BP 119/83
[2021-02-15 21:00] LABS: HEPATITIS C VIRUS ABY INDEX 0.1 INDEX (<0.8)
[2021-02-15 21:01] LABS: HIV SCREEN CENTAUR EXPOSED NEGATIVE (NEGATIVE)
== END 2021-02-15 20:41 | disposition home or self-care (01) ==
LOC: M ED 18:22
DX: S61.231A Puncture wound without foreign body of left index finger without damage to nail, initial encounter (principal); S60.413A Abrasion of left middle finger, initial encounter; Z77.21 Contact with and (suspected) exposure to potentially hazardous body fluids; X58.XXXA Exposure to other specified factors, initial encounter; Y92.89 Other specified places as the place of occurrence of the external cause; Y93.9 Activity, unspecified; E11.9 Type 2 diabetes mellitus without complications; Z98.84 Bariatric surgery status; Z79.899 Other long term (current) drug therapy; Z91.040 Latex allergy status

== ENCOUNTER 2021-05-09 02:12 | Emergency (ER) | payer BC ==
[~2021-05-09] VITALS: Ht 170.2 cm; Wt 72.3 kg
[2021-05-09 02:40] LABS: BILIRUBIN, URINE MANUAL NEGATIVE (NEGATIVE); GLUCOSE, URINE (UA) MANUAL NEGATIVE (NEGATIVE); KETONE, URINE MANUAL NEGATIVE (NEGATIVE); UROBILINOGEN, URINE MANUAL NORMAL (NORMAL)
[2021-05-09 02:51] LABS: BACTERIA, URINE SMALL AMOUNT; HYALINE CAST, URINE NONE SEEN /lpf (0-1); SQUAMOUS EPITHELIAL CELL URINE MOD AMOUNT /hpf (SMALL AMT)
[2021-05-09] MEDS ORDERED: KETOROLAC 30 MG/ML 1ML VIAL IV ONE (03:05)
[2021-05-09] MEDS ORDERED: NS 1,000 ML IV ONE (03:05)
[2021-05-09 03:28] LABS: BASO % 0.6 % (0.0-1.0); EOS # 0.2 10^3/uL (0.0-0.5); EOS % 3.1 % (0.0-3.0); HEMATOCRIT 42.1 % (36.0-47.0); HEMOGLOBIN 13.8 g/dl (12.0-15.5); LYMPH # 2.2 10^3/uL (1.5-5.0); LYMPH % 42.8 % (24.0-44.0); MEAN CORPUSCULAR HEMOGLOBIN 28.6 pg (27.0-33.0); MEAN CORPUSCULAR HGB CONC 32.8 g/dl (32.0-36.5); MEAN CORPUSCULAR VOLUME 87.2 fl (80.0-96.0); MONO # 0.3 10^3/uL (0.0-0.8); MONO % 6.4 % (2.0-8.0); NEUTROPHILS # 2.4 10^3/uL (1.5-8.5); NEUTROPHILS % 46.9 % (36.0-66.0); PLATELET COUNT, AUTOMATED 217 10^3/uL (150-450); RED BLOOD COUNT 4.83 10^6/uL (4.00-5.40); WHITE BLOOD COUNT 5.2 10^3/uL (4.0-10.0)
[2021-05-09 03:49] LABS: BLOOD UREA NITROGEN 12 MG/DL (7-18); CALCIUM LEVEL 9.1 MG/DL (8.5-10.1); CARBON DIOXIDE LEVEL 32 MEQ/L (21-32); CHLORIDE LEVEL 107 MEQ/L (98-107); CREATININE FOR GFR 0.78 MG/DL (0.55-1.30); GLOMERULAR FILTRATION RATE > 60.0 (>51); GLUCOSE, FASTING 105 MG/DL (70-100); POTASSIUM SERUM 3.8 MEQ/L (3.5-5.1); SODIUM LEVEL 143 MEQ/L (136-145)
[2021-05-09] MEDS ORDERED: KETO10TAB PO (04:27)
[2021-05-09 04:51] VITALS: BP 130/78
== END 2021-05-09 04:56 | disposition home or self-care (01) ==
LOC: M ED 02:12
DX: N20.0 Calculus of kidney (principal); K21.9 Gastro-esophageal reflux disease without esophagitis; Z98.84 Bariatric surgery status; M51.27 Other intervertebral disc displacement, lumbosacral region; Z79.899 Other long term (current) drug therapy; Z91.040 Latex allergy status
CPT/HCPCS: 74176; 80048; 81000; 85025; 87086; 96361; 96374; 99284; J1885

== ENCOUNTER → 2022-01-17 | Outpatient (REF) ==
[~2022-01-17] MED LIST changes: +KETO10TAB PO
[2022-01-17 14:13] LABS: RSV AMPLIFICATION NEGATIVE (NEGATIVE)
== END ==
LOC: M LABSMTC 11:34
PROVIDERS: ATTEND Family Medicine
DX: Z20.822 Contact with and (suspected) exposure to COVID-19 (principal)

== ENCOUNTER 2022-06-06 18:10 | Emergency (ER) | payer OTHER, BC ==
[~2022-06-06] VITALS: Ht 170.2 cm; Wt 76.3 kg
[2022-06-06 18:11] VITALS: BP 116/72
[2022-06-06 18:49] LABS: BASO % 0.5 % (0.0-1.0); EOS # 0.1 10^3/uL (0.0-0.5); EOS % 2.4 % (0.0-3.0); HEMATOCRIT 38.8 % (36.0-47.0); HEMOGLOBIN 12.9 g/dl (12.0-15.5); LYMPH % 35.1 % (24.0-44.0); MEAN CORPUSCULAR HEMOGLOBIN 28.4 pg (27.0-33.0); MEAN CORPUSCULAR HGB CONC 33.2 g/dl (32.0-36.5); MEAN CORPUSCULAR VOLUME 85.3 fl (80.0-96.0); MONO # 0.3 10^3/uL (0.0-0.8); MONO % 5.6 % (2.0-8.0); NEUTROPHILS # 3.2 10^3/uL (1.5-8.5); NEUTROPHILS % 56.2 % (36.0-66.0); PLATELET COUNT, AUTOMATED 203 10^3/uL (150-450); RED BLOOD COUNT 4.55 10^6/uL (4.00-5.40); WHITE BLOOD COUNT 5.7 10^3/uL (4.0-10.0)
[2022-06-06 19:22] LABS: ALBUMIN 3.8 G/DL (3.2-5.2); ALKALINE PHOSPHATASE 90 U/L (46-116); ALT/SGPT 14 U/L (7.0-40); AST/SGOT 16 U/L (<34); BILIRUBIN,TOTAL 0.3 MG/DL (0.3-1.2); BLOOD UREA NITROGEN 13 MG/DL (9-23); CARBON DIOXIDE LEVEL 26 MMOL/L (20-31); CHLORIDE LEVEL 104 MMOL/L (98-107); CREATININE FOR GFR 0.65 MG/DL (0.55-1.30); GLOMERULAR FILTRATION RATE > 60.0 (>51); GLUCOSE, FASTING 225 MG/DL (60-100); POTASSIUM SERUM 3.8 MMOL/L (3.5-5.1); SODIUM LEVEL 139 MMOL/L (136-145); TOTAL PROTEIN 6.7 G/DL (5.7-8.2)
[2022-06-06 19:24] LABS: HEPATITIS B SURFACE ANTIBODY POSITIVE (POSITIVE)
[2022-06-06] MEDS ORDERED: EXPOSURE KIT-ADULT 7 DAY SUPPLY PO ONE (19:35)
[2022-06-06 19:37] LABS: HEPATITIS B SURFACE ANTIGEN NEGATIVE (NEGATIVE)
[2022-06-06 19:49] LABS: HIV SCREEN CENTAUR EXPOSED NEGATIVE (NEGATIVE)
[2022-06-06 19:58] LABS: HEPATITIS C VIRUS ABY INDEX 0.1 INDEX (<0.8)
== END 2022-06-06 19:43 | disposition home or self-care (01) ==
LOC: M ED 18:10
DX: S61.230A Puncture wound without foreign body of right index finger without damage to nail, initial encounter (principal); Z77.21 Contact with and (suspected) exposure to potentially hazardous body fluids; W46.0XXA Contact with hypodermic needle, initial encounter; Y99.0 Civilian activity done for income or pay; Z91.040 Latex allergy status

== ENCOUNTER → 2023-04-23 | Outpatient (CLI) | payer BC ==
[2023-04-23 07:32] LABS: TOTAL 25(OH) VITAMIN D 14.4 NG/ML (20.0-100.0)
== END ==
LOC: M LAB 06:29
PROVIDERS: ATTEND Internal Medicine Gastroenterology
DX: K76.0 Fatty (change of) liver, not elsewhere classified (principal); K22.0 Achalasia of cardia; Z98.84 Bariatric surgery status; K74.00 Hepatic fibrosis, unspecified; K44.9 Diaphragmatic hernia without obstruction or gangrene; Z80.0 Family history of malignant neoplasm of digestive organs; R14.1 Gas pain; E55.9 Vitamin D deficiency, unspecified

== ENCOUNTER → 2023-04-23 | Outpatient (CLI) | payer BC ==
[2023-04-23 07:06] LABS: BASO % 0.5 % (0.0-1.0); EOS # 0.3 10^3/uL (0.0-0.5); EOS % 3.2 % (0.0-3.0); HEMATOCRIT 41.4 % (36.0-47.0); HEMOGLOBIN 13.6 g/dl (12.0-15.5); LYMPH # 2.2 10^3/uL (1.5-5.0); LYMPH % 27.7 % (24.0-44.0); MEAN CORPUSCULAR HGB CONC 32.9 g/dl (32.0-36.5); MEAN CORPUSCULAR VOLUME 85.4 fl (80.0-96.0); MONO # 0.5 10^3/uL (0.0-0.8); MONO % 6.1 % (2.0-8.0); NEUTROPHILS # 4.9 10^3/uL (1.5-8.5); NEUTROPHILS % 62.2 % (36.0-66.0); PLATELET COUNT, AUTOMATED 202 10^3/uL (150-450); RED BLOOD COUNT 4.85 10^6/uL (4.00-5.40); WHITE BLOOD COUNT 7.9 10^3/uL (4.0-10.0)
[2023-04-23 07:27] LABS: CREATININE, URINE 100.6 MG/DL; MALB URINE SIEMENS < 3.0 MG/L; MAU/CREAT RATIO 2.9 MCG/MG (0.0-30.0)
[2023-04-23 07:30] LABS: TOTAL IRON BINDING CAPACITY 406 UG/DL (250-425)
[2023-04-23 07:31] LABS: IRON (FE) 61 UG/DL (50-170)
[2023-04-23 07:32] LABS: FERRITIN 10.5 NG/ML (7.3-270.7); TOTAL 25(OH) VITAMIN D 13.7 NG/ML (20.0-100.0)
[2023-04-23 07:33] LABS: FOLATE 13.76 NG/ML (>5.4)
[2023-04-23 07:40] LABS: HEMOGLOBIN A1c 6.6 % (4.0-6.0)
[2023-04-23 07:41] LABS: ALBUMIN 3.8 G/DL (3.2-5.2); ALKALINE PHOSPHATASE 87 U/L (46-116); ALT/SGPT 14 U/L (7.0-40); AST/SGOT 12 U/L (<34); BILIRUBIN,TOTAL 0.4 MG/DL (0.3-1.2); BLOOD UREA NITROGEN 11 MG/DL (9-23); CALCIUM LEVEL 9.2 MG/DL (8.5-10.1); CARBON DIOXIDE LEVEL 32 MMOL/L (20-31); CHLORIDE LEVEL 107 MMOL/L (98-107); CHOLESTEROL LEVEL 160 MG/DL (<200); CHOLESTEROL RISK RATIO 2.26 (<5); CREATININE FOR GFR 0.65 MG/DL (0.55-1.30); GLOMERULAR FILTRATION RATE > 60.0 (>51); GLUCOSE, FASTING 124 MG/DL (60-100); HDL CHOLESTEROL 70.6 MG/DL (>40); LDL CHOLESTEROL 79.8 MG/DL (<100); NON-HDL-C 89.4 MG/DL; SODIUM LEVEL 142 MMOL/L (136-145); TRIGLYCERIDES LEVEL 48 MG/DL (<150)
== END ==
LOC: M LAB 06:27
PROVIDERS: ATTEND Family Medicine
DX: E11.9 Type 2 diabetes mellitus without complications (principal); Z98.84 Bariatric surgery status

== ENCOUNTER → 2023-11-09 | Outpatient (REF) | LOC: M EMP 07:58 | PROVIDERS: ATTEND Family Medicine | DX: Z11.52 Encounter for screening for COVID-19 (principal) ==

== ENCOUNTER → 2024-09-29 | Outpatient (CLI) | payer BC ==
[~2024-09-29] MED LIST changes: -PHEN-239 PO; +PHEN37.511 PO
== END ==
LOC: M RAD 16:33
DX: M25.552 Pain in left hip (principal); M16.0 Bilateral primary osteoarthritis of hip; M47.816 Spondylosis without myelopathy or radiculopathy, lumbar region